=== PATIENT | male | born 1990 | race Caucasian/White ===

== ENCOUNTER 2017-08-12 17:38 | Emergency (ER) | payer SELFPAY ==
[2017-08-12 17:38] VITALS: BP 142/81; PULSE 115; RESP 24; TEMP 36.1; O2SAT 96; BMI 17.1
--- NOTE | 2017-08-12 18:15 | EKG12_ITS ---
Test Reason : CP Blood Pressure : / mmHG Vent. Rate : 116 BPM Atrial Rate : 116 BPM P-R Int : 126 ms QRS Dur : 094 ms QT Int : 322 ms P-R-T Axes : 081 088 048 degrees QTc Int : 447 ms Sinus tachycardia Biatrial enlargement Abnormal ECG Confirmed by OSCAR MANTILLA, GABRIEL ([id number]), international editorial producer TRACY VASQUEZ ([id number]) on 08/15/2017 2:52:09 PM Referred By: Confirmed By:GABRIEL MOORE MD
[2017-08-12 18:16] VITALS: O2SAT 99
--- NOTE | 2017-08-12 18:20 | RAD_ITS ---
STUDY: X-RAY CHEST REASON FOR EXAM: Male, 26 years old. Chest pain TECHNIQUE: Single frontal view COMPARISON: October 22, 2010 FINDINGS: The lungs are clear and expanded. There is no demonstrated pleural abnormality. Normal size heart. Normal mediastinum and neeru. Normal visualized pulmonary arteries. Normal visualized aortic arch and descending thoracic aorta. Normal visualized thoracic spine. Normal visualized ribs, clavicles, and shoulders. There is no demonstrated abnormality of the visualized soft tissue structures of the upper abdomen. RAD/Chest 1 View (Portable) IMPRESSION: Normal x-ray examination of the chest. Electronically Signed: Gee Mckeon DO at 18:34 EST Tel [phone], Service support ,
--- NOTE | 2017-08-12 18:28 | ED.RN ---
cousin juan miguel is leaving. will need called to take pt home. [phone]
[2017-08-12 18:36] LABS: Absolute Lymphocyte Count 1.51 X10^3/ul (0.83-4.51); Absolute Neutrophil Count 12.1 X10^3/uL (2.0-7.7); Basophil# 0.04 X10^3/uL; Basophil% 0.3 % (0-1); Eosinophil# 0.07 X10^3/uL; Eosinophils% 0.5 % (0-5); Hematocrit 48.2 % (40-54); Hemoglobin 17.1 g/dl (13.0-16.5); Lymphocyte # 1.51 X10^3/ul (4.0); Lymphocyte % 10.3 % (19-41); Mean Corp Hgb Conc 35.5 g/gl (32-36); Mean Corpuscular Hgb 32.3 pg (27.0-32.0); Mean Corpuscular Volume 90.9 fL (80-94); Monocyte# 0.99 X10^3/uL; Monocyte% 6.7 % (0-10); Neutrophil # 12.06 X10^3/uL (2.7-7.7); Neutrophil % 81.9 % (47-70); Platelet Count 224 K/mm3 (150-450); RBC Distribution Width CV 12.6 % (11.6-14.6); RBC Distribution Width SD 41.6 fl (35.1-43.9); White Blood Count 14.7 K/mm3 (4.4-11.0)
[2017-08-12 18:38] LABS: POSITIVE COUNT NO; POSITIVE DIFFERENTIAL NO; POSITIVE MORPHOLOGY NO
[2017-08-12 19:04] LABS: Anion Gap 10 (5-15); BUN 7 mg/dL (7-18); BUN/Creat Ratio 7.4 RATIO (10-20); Chloride 102 mmol/L (98-107); Creatinine, Serum 0.95 mg/dL (0.70-1.30); EST Glomerular Filtration Rate 102 mL/min (>60); Est Glom Filt Rate - Afr Amer 124 mL/min (>60); Estimated Creatinine Clearance 80.84 ml/min; Glucose 122 mg/dL (74-106); Sodium Level 136 mmol/L (136-145)
--- NOTE | 2017-08-12 19:28 | EKG12_ITS ---
Test Reason : REPEAT Blood Pressure : / mmHG Vent. Rate : 081 BPM Atrial Rate : 081 BPM P-R Int : 106 ms QRS Dur : 096 ms QT Int : 382 ms P-R-T Axes : 038 083 065 degrees QTc Int : 443 ms Sinus rhythm with short [place] Otherwise normal ECG Confirmed by OSCAR MANTILLA, GABRIEL ([id number]), primer expeditor and drier TRACY VASQUEZ ([id number]) on 08/15/2017 2:56:42 PM Referred By: BENI Confirmed By:GABRIEL MOORE MD
--- NOTE | 2017-08-12 19:35 | ED.DCSUM_ITS ---
- ER Visit Summary Date of Service: 08/12/17 Chief Complaint: Right Sided chest pain History of Present Illness: The patient is a 26 M hx of anxiety panic attacks. He partied all last night doing marijuana and cocaine. At 3 PM he developed right-sided chest pain prior to that he denies anxiety. History of cardiac disease. No history of DVT or PE. No recent travel, surgery or mobilization. No leg pain or swelling. No hemoptysis. No family history of clotting disorder. No pleuritic pain. No fever or cough. Physical Examination: Well-appearing young male. Vital signs are stable afebrile. Pulse ox 99% room air no signs of hypoxia. HEENT exam unremarkable. Neck nontender no JVD. Lungs clear to auscultation bilaterally. Heart the rhythm rate about 115 no murmur. Chest wall is nontender. No ecchymosis or bruising no subcu air or crepitance. No signs of trauma. No bony deformities. Abdomen soft nontender normal bowel sounds no peritoneal signs. He is moving all 4 extremities. Neurovascular intact. Calves no edema nor cords. Calves are nontender. Equal symmetrical radial pulses. Back exam normal. Neurologic exam normal. He does seem anxious. Test Results: CBC shows white count of 14 otherwise unremarkable. BMP normal except for potassium of 3.0. Opponent normal. EKG sinus tachycardia rate 116 with no acute signs of VT or ischemia. Chest x-ray shows normal cardiac silhouette and mediastinum. No pneumothorax. Repeat EKG was normal sinus rhythm rate 81 and a. Both the first and second EKG were unchanged and are unchanged from prior EKG from 2017. Emergency Department Course and Treatment: Patient will be treated with p.o. Ativan. A second EKG will be obtained. I do think is secondary to anxiety. I do not think it is cardiac in etiology nor do I think it is a PE. Will be reassessed if he is doing well he will be discharged home. Treatment Plan: Given p.o. Ativan on repeat exam is doing well at 1951 and he will be discharged to home. Disposition: Discharge Impression: Acute right-sided chest pain Acute anxiety attack This note was generated with [employer] dictation software. It may contain incorrect words, spelling, and punctuation that were not noted in review of the chart prior to signing ED Disposition - Plan for ED Patient: Disposition: Home or Assisted Living Chief Complaint: Chest Pain Instructions: ED Asthma Acute Ch, ED Panic Attack Referrals: Jewel Gunn MD [NON-STAFF] - As soon as possible Additional Instructions: I suspect this is all secondary to anxiety. Your labs, chest x-ray and EKG are unremarkable.
[2017-08-12 19:47] VITALS: BP 124/88; PULSE 87; RESP 13; O2SAT 98
[2017-08-12] MEDS: LORazepam 1 MG Tablet PO (19:50)
[2017-08-12 20:05] VITALS: BP 125/77; BP 128/77; BP 129/90; PULSE 75; PULSE 78; PULSE 94; RESP 16; RESP 18; RESP 21; O2SAT 95; O2SAT 99
--- NOTE | 2017-08-12 20:06 | NURSING ---
calling juan miguel to come and pick the pt up
== END 2017-08-12 20:06 | disposition home or self-care (01) ==
PROVIDERS: Emergency Provider Emergency Medicine
DX: R07.9 Chest pain, unspecified (principal); F41.9 Anxiety disorder, unspecified; R00.0 Tachycardia, unspecified; Z72.0 Tobacco use
CPT/HCPCS: 71045; 80048; 84484; 85025; 93005; 99285

== ENCOUNTER 2018-10-02 10:57 | Emergency (ER) | payer SELFPAY ==
[2018-10-02 10:59] VITALS: BP 113/77; PULSE 95; RESP 20; TEMP 36.5; O2SAT 100; BMI 17.4
--- NOTE | 2018-10-02 11:15 | ED.DCSUM_ITS ---
- ER Visit Summary Date of Service: 10/02/18 Chief Complaint: Body aches, diarrhea History of Present Illness: The patient is a 27 M who his had norovirus last weekend. Patient developed body aches, nausea, and diarrhea over the past 3 days. He has not had a measured fever. Physical Examination: Vital signs unremarkable. Patient's lying in bed. He appears ill but in no distress. Heart is regular rate and rhythm. Lung sounds are clear. Abdomen is soft with no focal tenderness. Hypoactive bowel sounds are present. Test Results: CBC was a white count 11.1 with 83% neutrophils. Hemoglobin is concentrated at 17.3. Chemistry studies are normal. Emergency Department Course and Treatment: Patient was given IV fluids, Zofran, Toradol, and 2 mg of morphine. On repeat evaluation he does feel improved. He will be given Toradol and Zofran for home. Treatment Plan: [] Disposition: Discharge Impression: Diarrhea with presumed norovirus This note was generated with [employer] dictation software. It may contain incorrect words, spelling, and punctuation that were not noted in review of the chart prior to signing ED Disposition - Plan for ED Patient: Disposition: Home or Assisted Living Instructions: ED Diarrhea Viral Prescriptions: Ondansetron [Zofran Odt] 4 mg PO Q8H PRN PRN #10 tablet PRN Reason: Nausea Ketorolac [Toradol] 10 mg PO Q6H PRN #14 tablet PRN Reason: Pain Referrals: Pau Johnson MD [STAFF PHYSICIAN] - As Needed
[2018-10-02] MEDS: Ondansetron 4 MG/2 ML Vial IV (11:56)
[2018-10-02] MEDS: 0.9% Normal Saline 1,000 ML 1000 ML IV (11:56)
[2018-10-02] MEDS: Ketorolac 30 MG/ML Syringe IV (11:57)
[2018-10-02] MEDS: Morphine 2 MG/ML Syringe IV (11:57)
[2018-10-02 12:19] LABS: Absolute Lymphocyte Count 0.95 X10^3/ul (0.83-4.51); Absolute Neutrophil Count 9.2 X10^3/uL (2.0-7.7); Basophil# 0.03 X10^3/uL; Basophil% 0.3 % (0-1); Eosinophil# 0.11 X10^3/uL; Hematocrit 49.2 % (40-54); Hemoglobin 17.3 g/dl (13.0-16.5); Lymphocyte # 0.95 X10^3/ul (4.0); Lymphocyte % 8.6 % (19-41); Mean Corp Hgb Conc 35.2 g/gl (32-36); Mean Corpuscular Hgb 32.2 pg (27.0-32.0); Mean Corpuscular Volume 91.4 fL (80-94); Mean Platelet Vol. 11.4 fl (6.2-12.0); Monocyte# 0.78 X10^3/uL; Neutrophil # 9.22 X10^3/uL (2.7-7.7); Platelet Count 179 K/mm3 (150-450); RBC Distribution Width CV 12.4 % (11.6-14.6); RBC Distribution Width SD 41.5 fl (35.1-43.9); Red Blood Count 5.38 M/mm3 (4.6-6.2); White Blood Count 11.1 K/mm3 (4.4-11.0)
[2018-10-02 12:26] LABS: POSITIVE COUNT NO; POSITIVE DIFFERENTIAL NO; POSITIVE MORPHOLOGY NO
[2018-10-02 12:27] LABS: Anion Gap 6 (5-15); BUN 9 mg/dL (7-18); Calcium,Total 9.5 mg/dL (8.5-10.1); Chloride 104 mmol/L (98-107); EST Glomerular Filtration Rate 95 mL/min (>60); Est Glom Filt Rate - Afr Amer 116 mL/min (>60); Estimated Creatinine Clearance 77.74 ml/min; Glucose 81 mg/dL (74-106); Potassium 3.8 mmol/L (3.5-5.1); Sodium Level 138 mmol/L (136-145)
[2018-10-02] MEDS: 0.9% Normal Saline 1,000 ML 150 ML IV (12:54)
[2018-10-02 13:32] VITALS: BP 100/53; PULSE 75; RESP 16; O2SAT 96
[2018-10-02 13:39] VITALS: BP 104/54; PULSE 78; RESP 16; O2SAT 98
== END 2018-10-02 13:40 | disposition home or self-care (01) ==
PROVIDERS: Emergency Provider Emergency Medicine
DX: R19.7 Diarrhea, unspecified (principal); R11.0 Nausea; Z87.891 Personal history of nicotine dependence
CPT/HCPCS: 80048; 85025; 96361; 96374; 96375; 99283; J7030; J2405

== ENCOUNTER 2019-07-14 18:06 | Emergency (ER) | payer BC, SELFPAY ==
[2019-07-14 18:07] VITALS: BP 118/59; PULSE 124; RESP 18; TEMP 36.4; O2SAT 100; BMI 16.1
--- NOTE | 2019-07-14 18:25 | ED.VISSUMM ---
- ER Visit Summary Date of Service: 07/14/19 Chief Complaint: Abdominal pain, nausea, vomiting History of Present Illness: The patient is a 28 M who presents with abdominal pain, nausea, vomiting for the past week. Patient states this has been waxing and waning. Patient states the pain is cramping a diffuse but worse over the upper abdomen. Patient denies any hematemesis or coffee-ground emesis. Patient states he has had some loose diarrhea but his most recent stools have been solid. Patient denies any dysuria or hematuria. Patient denies any radiation of the pain. Patient admits to some subjective chills. Patient also admits to some rhinorrhea. Physical Examination: Vital signs are stable except for a tachycardia of 124. Patient is afebrile. Patient is in no acute distress. Oral mucosa is pink and moist. Neck is supple. Trachea is midline. There is no JVD noted. Heart was regular and tachycardic. Lungs are clear and equal bilaterally. Abdomen is soft. Bowel sounds are normal. There is mild diffuse tenderness. There is no rebound or guarding noted. Skin is warm dry. Cranial nerves II through XII are intact. There are no focal motor or sensory deficits noted. Extremities are intact. There is no calf tenderness or edema. Test Results: CBC and comprehensive metabolic profile were within normal limits. Emergency Department Course and Treatment: Patient was given IV fluids. Patient was feeling better on reevaluation. Patient was instructed to start with a liquid diet and advance to a bland diet then to a regular diet as he starts to feel better. Patient was instructed to follow-up with his primary care physician in 5 to 7 days. Patient understood and was agreeable with the plan. All questions were answered. Disposition: Discharge home Impression: Nausea and vomiting This note was generated with [employer] dictation software. It may contain incorrect words, spelling, and punctuation that were not noted in review of the chart prior to signing ED Disposition - Plan for ED Patient: Disposition: Home or Assisted Living Diagnosis: Nausea and vomiting Instructions: VOMITING AND DIARRHEA, Nonspecific (Adult) Referrals: Care Physician,No Primary [Primary Care Provider] - 5-7 Days
[2019-07-14] MEDS: Ondansetron 4 MG/2 ML Vial IV (18:38)
[2019-07-14 18:39] LABS: Absolute Lymphocyte Count 0.78 X10^3/uL (0.83-4.51); Absolute Neutrophil Count 6.7 X10^3/uL (2.0-7.7); Basophil# 0.03 X10^3/uL; Basophil% 0.4 % (0-1); Eosinophil# 0.09 X10^3/uL; Eosinophils% 1.1 % (0-5); Hematocrit 49.6 % (40-54); Hemoglobin 16.8 g/dL (13.0-16.5); Lymphocyte # 0.78 X10^3/ul (4.0); Lymphocyte % 9.6 % (19-41); Mean Corp Hgb Conc 33.9 g/dL (32-36); Mean Corpuscular Hgb 31.2 pg (27.0-32.0); Mean Platelet Vol. 10.2 fl (6.2-12.0); Monocyte# 0.49 X10^3/uL; Monocyte% 6.1 % (0-10); NRBC Flagged by Analyzer 0 % (0-5); Neutrophil # 6.67 X10^3/uL (2.7-7.7); Neutrophil % 82.4 % (47-70); Platelet Count 220 K/mm3 (150-450); RBC Distribution Width CV 12.1 % (11.6-14.6); RBC Distribution Width SD 40.8 fl (35.1-43.9); Red Blood Count 5.39 M/mm3 (4.6-6.2); White Blood Count 8.1 K/mm3 (4.4-11.0)
[2019-07-14] MEDS: 0.9% Normal Saline 1,000 ML 1000 ML IV (18:39)
[2019-07-14 18:58] LABS: ALB/GLOB Ratio 1.1 RATIO (0.9-2.4); AST(SGOT) 13 U/L (15-37); Alanine Aminotransfer ALT/SGPT 19 U/L (16-61); Albumin, Serum 3.7 g/dL (3.2-5.0); Alkaline Phosphatase 56 U/L (45-117); Anion Gap 3 (5-15); BUN 11 mg/dL (7-18); BUN/Creat Ratio 9.4 RATIO (10-20); Calcium,Total 8.8 mg/dL (8.5-10.1); Chloride 105 mmol/L (98-107); Creatinine, Serum 1.17 mg/dL (0.70-1.30); EST Glomerular Filtration Rate 79 mL/min (>60); Est Glom Filt Rate - Afr Amer 96 mL/min (>60); Estimated Creatinine Clearance 60.84 ml/min; Globulin 3.4 g/dL (2.2-4.2); Glucose 105 mg/dL (74-106); Lipase 70 U/L (73-393); Potassium 3.6 mmol/L (3.5-5.1); Protein, Total 7.1 g/dL (6.4-8.2); Sodium Level 138 mmol/L (136-145)
[2019-07-14 20:18] VITALS: BP 95/52; PULSE 75; RESP 16; O2SAT 98
--- NOTE | 2019-07-14 20:20 | CM.ED ---
SOCIAL WORK REASON FOR REFERRAL: NO PCP MET WITH PATIENT IN ROOM. INTRODUCED ROLE AND REASON FOR REFERRAL. PATIENT STATES DOES NOT HAVE PRIMARY CARE PHYSICIAN. LIST OF LOCAL PRIMARY CARE PHYSICIANS PROVIDED. PLAN: DARSHANA BOSCH, SUSANA.
== END 2019-07-14 20:19 | disposition home or self-care (01) ==
PROVIDERS: Emergency Provider Emergency Medicine
DX: R11.2 Nausea with vomiting, unspecified (principal); E86.0 Dehydration; R10.9 Unspecified abdominal pain; R00.0 Tachycardia, unspecified
CPT/HCPCS: 80053; 83690; 85025; 96361; 96374; 99283; J7030; A4216; J2405

== ENCOUNTER 2022-09-24 19:00 | Emergency (ER) | payer SELFPAY ==
[2022-09-24 19:01] VITALS: BP 126/60; PULSE 108; RESP 18; TEMP 36.3; O2SAT 100; BMI 16.9
[2022-09-24] MEDS: 0.9% Normal Saline 1,000 ML 1000 ML IV (19:45)
[2022-09-24 19:47] LABS: Absolute Neutrophil Count 17.3 X10^3/uL (2.0-7.7); Basophil# 0.09 X10^3/uL; Basophil% 0.5 % (0-1); Eosinophil# 0.01 X10^3/uL; Eosinophils% 0.1 % (0-5); Hematocrit 52.4 % (40-54); Lymphocyte % 3.7 % (19-41); Mean Corp Hgb Conc 34.9 g/dL (32-36); Mean Corpuscular Volume 91.8 fL (80-94); Mean Platelet Vol. 11.2 fl (6.2-12.0); Monocyte# 0.73 X10^3/uL; Monocyte% 3.9 % (0-10); NRBC Flagged by Analyzer 0 % (0-5); Neutrophil % 91.5 % (47-70); Platelet Count 263 K/mm3 (150-450); RBC Distribution Width CV 12.4 % (11.6-14.6); RBC Distribution Width SD 41.2 fl (35.1-43.9); Red Blood Count 5.71 M/mm3 (4.6-6.2); White Blood Count 18.9 K/mm3 (4.4-11.0)
[2022-09-24 19:56] LABS: Hemoglobin 18.3 g/dL (13.0-16.5)
[2022-09-24 20:00] LABS: Anion Gap 6 (5-15); BUN 16 mg/dL (7-18); BUN/Creat Ratio 14.3 RATIO (10-20); Calcium,Total 9.9 mg/dL (8.5-10.1); Chloride 105 mmol/L (98-107); Creatinine, Serum 1.12 mg/dL (0.70-1.30); EST Glomerular Filtration Rate 81 mL/min (>60); Est Glom Filt Rate - Afr Amer 99 mL/min (>60); Estimated Creatinine Clearance 64.97 ml/min; Glucose 126 mg/dL (74-106); Sodium Level 133 mmol/L (136-145)
--- NOTE | 2022-09-24 21:48 | EX.ED.DYSGE1 ---
HPI History of Present Illness Chief Complaint: Nausea/Vomiting/Diarrhea Informant: patient Narrative Narrative: Patient presents with nausea vomiting diarrhea. He states yesterday felt just fine. He woke up this morning and seem to be okay. He brushed his teeth. Few minutes later he started vomiting. He still try to go to work. He then had several episodes of vomiting and watery diarrhea. No blood has been seen. No fevers or chills. He states his stomach cramps before he has to move his bowels but he is not having pain. He is not having symptoms now. He has a daughter that was recently had a fever and diarrhea but she did not vomit. This patient has not had a fever. He denies any history of abdominal surgeries. He is on medical marijuana but has not changed the dose or frequency of this and has never had vomiting issues before. [facility] Medical History Anxiety Asthma Medical marijuana use PTSD (post-traumatic stress disorder) Home Medications ondansetron 4 mg disintegrating tablet 4 mg PO Q8H PRN PRN Nausea #10 tabs 09/24/22 [Rx Last Taken Unknown] Allergy/AdvReac Type Severity Reaction Status Date / Time No Known Allergies Allergy Verified 09/24/22 19:02 Social History Smoking Status: Current every day smoker tobacco type: e-cigarettes ROS ROS ED Constitutional Constitutional ED: Denies chills, fever(s) or subjective ENT ENT ED: Denies rhinorrhea or sore throat Cardiovascular Cardiovascular: Denies chest pain or palpitations Respiratory/Chest Respiratory/Chest: Denies cough Gastrointestinal Gastrointestinal: Reports diarrhea, nausea and vomiting Genitourinary Genitourinary ED: Denies dysuria, hematuria or urinary frequency Musculoskeletal Musculoskeletal: Denies myalgias Integumentary Denies rash Neurologic Neurologic: Denies headache(s) Endocrine Endocrinology: Denies polydipsia or polyuria Hematologic/Lymphatic Hematologic/Lymphatic: Denies easy bleeding or easy bruising Allergic/Immunologic Allergic/Immunologic ED: Denies urticaria EXAM Physical Exam Narrative Exam Narrative: CONSTITUTIONAL: Patient is nontoxic in appearance. The patient looks comfortable. Despite his history, he does not look toxic HEENT: No notable trauma. Mucous membranes are slightly dry. No sinus tenderness. EYES: No conjunctival injection. No icterus CARDIOVASCULAR: Regular rate. Regular rhythm. No notable murmur. No JVD. RESPIRATORY: No respiratory distress. Breathing is unlabored. No wheezes. No rhonchi. No rales. No pain with a deep breath. GASTROINTESTINAL: Not distended. Bowel sounds are normal to slightly increased. No tenderness. No guarding. No rebound. No palpable mass. No bruit. GENITOURINARY: No tenderness over the bladder. No CVA tenderness. MUSCULOSKELETAL: Atraumatic. No peripheral edema. NEUROLOGICAL: Patient is alert and appropriate. No gross focal deficit noted. SKIN: No noted rashes. No diaphoresis. PSYCHIATRIC: Patient is calm. Mood is appropriate. Const Vital Signs: 09/24/22 19:01 Temperature 97.4 F L Temperature Source Temporal Pulse Rate 108 H Respiratory Rate 18 Blood Pressure 126/60 H Blood Pressure Mean 82 Pulse Ox 100 Oxygen Delivery Method Room Air MDM MDM MDM Narrative Medical decision making narrative: Patient CBC did show high white count and hemoglobin. This may be due to stress demargination and some dehydration. Patient is not having fevers. Electrolytes showed minimally low sodium. Range of her electrolytes overall look good. Glucose was a little bit up at 126. Patient was given IV fluids and Zofran. He states his nausea is more than 50% gone. I will give him some Phenergan. He states he has not moved his bowels at all. He is feeling better. He feels like it is starting to go away. Repeat exam really shows a benign abdomen still. Its not distended. Bowel sounds are still normal to slightly increased. There is no tenderness or mass. Even though the patient has a elevated white count, he is not having abdominal tenderness or fevers. I do not think we need to do CAT scan or imaging of his abdomen. He has exposure to a child with some similar symptoms. He is starting to feel better. We discussed reasons to return that would prompt us to look further also. All questions were answered. Patient has tolerated some fluids. He wanted to eat some crackers or something. But I stated he still has a little bit of nausea and I rather get Phenergan in first. I think he can just stay on liquids initially. Lab Data Labs: Laboratory Results - last 24 hr 09/24/22 09/24/22 19:40 19:40 WBC 18.9 H RBC 5.71 Hgb 18.3 H* Hct 52.4 MCV 91.8 MCH 32.0 MCHC 34.9 RDW Std Deviation 41.2 RDW Coeff of [place] 12.4 Plt Count 263 MPV 11.2 Immature Gran % (Auto) 0.300 Neut % (Auto) 91.5 H Lymph % (Auto) 3.7 L [place] % (Auto) 3.9 Eos % (Auto) 0.1 Baso % (Auto) 0.5 Absolute Neuts (auto) 17.3 H Absolute Lymphs (auto) 0.70 L Nucleated RBC % 0 [address] Review May foll Sodium 133 L Potassium 4.0 Chloride 105 Carbon Dioxide 22.0 Anion Gap 6 BUN 16 Creatinine 1.12 Estim Creat Clear Calc 64.97 Est GFR (MDRD) Af Amer 99 Est GFR (MDRD) Non-Af 81 BUN/Creatinine Ratio 14.3 Glucose 126 H Calcium 9.9 Discharge Plan Triage Chief Complaint: Nausea/Vomiting/Diarrhea ED Provider: Dominguez Zarate Dx/Rx/DC Orders Clinical Impression: Nausea vomiting and diarrhea, Dehydration Instructions: ED Diet Vomiting Diarrhea Prescriptions: New ondansetron [ondansetron] 4 mg tablet,disintegrating 4 mg PO Q8H PRN PRN (Reason: Nausea) Qty: 10 0RF Primary Care Provider: Care Physician,No Primary Referrals: Ryanne Rutherford DO [Med Staff - Active Staff] - 1-2 Days if not improving Care Physician,No Primary [Primary Care Provider] - Disposition Disposition: Home, Self Care
[2022-09-24] MEDS: Ondansetron 4 MG/2 ML Vial IV (22:12)
[2022-09-24] MEDS: 0.9% Normal Saline 1,000 ML 999 ML IV (22:13)
[2022-09-24 23:12] VITALS: BP 118/55; PULSE 81; RESP 18
[2022-09-26 09:56] LABS: Pathologist Review Reviewed
== END 2022-09-24 23:34 | disposition home or self-care (01) ==
PROVIDERS: Emergency Provider Emergency Medicine; Visit Provider Emergency Medicine
DX: R11.2 Nausea with vomiting, unspecified (principal); F17.290 Nicotine dependence, other tobacco product, uncomplicated; R19.7 Diarrhea, unspecified; E86.0 Dehydration; J45.909 Unspecified asthma, uncomplicated
CPT/HCPCS: 80048; 85025; 96361; 96374; 99283; J7030; A4216; J2405

== ENCOUNTER 2025-02-01 12:06 | Emergency (ER) | payer SELFPAY ==
[2025-02-01 12:07] VITALS: BP 116/72; PULSE 110; RESP 20; TEMP 36.1; O2SAT 99
--- NOTE | 2025-02-01 12:08 | RAD_ITS ---
PROCEDURE: FOOT MIN 3 VIEWS 02/01/2025 REASON FOR EXAM: INJURY Left heel pain following a fall. TECHNIQUE: FOOT MIN 3 VIEWS Laterality: Left foot COMPARISON: None FINDINGS: Bones: No visible fracture. No suspicious bone lesion. Joints: Normal alignment. Soft tissues: Soft tissue swelling. Other: RAD/Foot min 3 Views IMPRESSION: Soft tissue swelling. No fracture is seen. Reading Location: [facility]
[2025-02-01 12:46] VITALS: BMI 18.4
--- NOTE | 2025-02-01 13:12 | EDS_ITS ---
HPI History of Present Illness Chief Complaint: Lower Extremity Injury [facility] Medical History Anxiety Asthma Medical marijuana use PTSD (post-traumatic stress disorder) Home Medications ?Medication ?Instructions ?Recorded ?Last Taken ?Type fluticasone propionate 50 1 spray intranasal DAILY PRN 02/01/25 01/31/25 History mcg/actuation nasal allergy symptoms spray,suspension (24 Hour Allergy Relief) Allergy/AdvReac Type Severity Reaction Status Date / Time No Known Allergies Allergy Verified 09/24/22 19:02 Social History Smoking Status: Current every day smoker tobacco type: e-cigarettes EXAM Physical Exam Const Vital Signs: 02/01/25 12:07 Temperature 96.9 F L Temperature Source Temporal Pulse Rate 110 H Respiratory Rate 20 H Blood Pressure 116/72 Blood Pressure Mean 86 Pulse Ox 99 Oxygen Delivery Method Room Air [facility] Narrative Medical decision making narrative: HISTORY OF PRESENT ILLNESS: Chief complaint: Left heel pain 34-year-old male History of asthma, anxiety, PTSD presents with left heel pain after moving furniture last night. REVIEW OF SYSTEMS: Pertinent positives: Left heel pain Pertinent negatives: Numbness tingling PHYSICAL EXAM: Nursing triage notes reviewed, Vital signs reviewed Constitutional: please see mdm Extremities: No edema, TTP over left heel. Intact Young sign Neuro: Intact sensation L1-S1 dermatomal distributions. Intact 5/5 strength in hip flexion (T12-L3). Knee extension (L2-L4). Ankle dorsiflexion (L4-L5). Ankle plantar flexion (S1). Great toe extension (L5). 2+ patellar and Achilles DTRs. Skin: No rash or lesions noted, no sign of open fracture MEDICAL DECISION MAKING: Chief Complaint: please see HPI MDM Narrative: Patient was initially hemodynamically stable, afebrile and nontoxic-appearing. Left lower extremity was neurovascularly intact I considered the following differential diagnosis: Heel fracture, ankle fract ure, dislocation, contusion X-ray of the left foot was obtained in triage ALL IMAGES (IF OBTAINED) HAVE BEEN PERSONALLY REVIEWED AND INTERPRETED BY MYSELF. X-ray was interpreted personally by myself showed evidence obvious bony abnormality. Radiologist agreed my interpretation Patient likely suffered from bony contusion, no evidence of tendinous injury on exam. RICE instructions given The patient and/or family, caregivers express understanding. The patient and/or family, caregivers agrees with the plan. Shared decision making: I will have a discussion with the patient and or visitors regarding risk/benefits of further testing or admission. They will be made aware of of the risk/benefits inherent in this decision they will be given the opportunity to voice understanding. Total critical care time today provided was at least 0 minutes. This excludes separately billable procedures. Critical care time (if documented) is secondary to the patient having high probability of clinically significant/life threatening deterioration in the patient's condition which required my urgent intervention. Impression: 1. Acute foot pain 2. Heel contusion Dispo: Discharge home This note was generated with [employer] dictation software. It may contain incorrect words, spelling, and punctuation that were not noted in review of the chart prior to signing. Radiography Diagnostic Testing: Clinical Impression(s) from Imaging Studies Foot X-Ray 02/01/25 12:08 IMPRESSION: Soft tissue swelling. No fracture is seen. Reading Location: [id number] Discharge Plan Triage Chief Complaint: Lower Extremity Injury ED Provider: Max Cornelius Dx/Rx/DC Orders Instructions: ED Foot Contusion, ED RICE Prescriptions: No Action fluticasone propionate [24 Hour Allergy Relief] 50 mcg/actuation spray,suspension 1 spray intranasal DAILY PRN (Reason: allergy symptoms) Rx Instructions: administer into each nostril Primary Care Provider: Care Physician,No Primary Referrals: Migue Yu MD [Med Staff - Active Staff] - Activity Restrictions/Additional Instructions: Thank you for trusting us with your care today! Your Xrays are negative for bony abnormalities. Please take Tylenol (2 pills, 650 mg), ibuprofen (2 pills, 400 mg) every 6 hours as needed for pain and fever control. Please return to the emergency department if your symptoms change or worsen. Please follow with your primary care physician for further outpatient evaluation and management. Print Language: Cook Islander Disposition Disposition: Home, Self Care
--- OUTSIDE RECORDS SUMMARY | 2025-02-01 21:25 | XMS RPT_ITS | CCD ---
Author Organization [facility] Care Team Providers Care Molding Machine Operator Name Role Phone KASSY Unavailable Unavailable PHYSICIAN, NONE Unavailable Unavailable Jorge MANTILLA, Francisca Primary Care Provider [phone] Jorge MANTILLA, Francisca Primary Care Provider [phone] Dominguez Zarate Attending Unavailable Care Physician, No Primary Primary Care Unava wally Sanchez MD, Francisca Primary Care Provider [phone] Annel Higginbotham PA-C Unavailable [phone] Older GALLEY COOK.JAREN, Pily Unavailable Deanna Montgomery PA-C Unavailable Unavailable Primary Care Provider UnavailJANIS Alarcon Attending Unavailable FRANCISCA SANCHEZ Primary Care Unavailable Care Physician, No Primary Primary Care Provider Unavailable Dr. Max Cornelius DO Emergency Provider Allergies Allergy Classification Reported Allergen(s) Allergy Type Date of Onset Reaction(s) Facility (8 sources) Azithromycin; Translations: [AZITHROMYCIN] Drug Allergy 1 GI Upset [facility] (8 sources) Seasonal allergy; Translations: [SEASONAL ALLERGIES] Allergy to substance 9 Other: See Comments [facility] Medications Current Medications Medication Drug Class(es) Dates Sig (Normalized) Sig (Original) amoxicillin 875 mg oral tablet (1 source) Penicillin-class Antibacterial Start: 08-13-2022 End: 08-20-2022 take 1 tablet by mouth twice daily amoxicillin (AMOXIL) 875 mg tablet Indications: Otitis media with effusion, bilateral Take 1 tablet by mouth twice daily for 7 days. 14 tablet 0 08/13/2022 08/20/2022 Active Comment on above: Take 1 tablet by imani twice daily for 7 days. amoxicillin 875 mg / clavulanate 125 mg oral tablet (1 source) Penicillin-class Antibacterial Start: 09-29-2023 End: 10-06-2023 take 1 tablet by mouth twice daily amoxicillin-clavu lanate potassium (AUGMENTIN) 875-125 mg per tablet Indications: Bacterial sinusitis Take 1 tablet by mouth two times a day for 7 days. 14 tablet 0 09/29/2023 10/06/2023 Active fluticasone propionate 0.05 mg/actuat metered dose nasal spray (4 sources) Corticosteroid Start: 02-01-2025 take 50 ug nasal route once daily as needed Fluticasone Propionate (24 Hour Allergy Relief) 50 mcg/actuation spray,suspension Active 1 NMA INTRANASAL DAILY as needed for allergy symptoms February 01, 2025 12:00am administer into each nostril Start: 09-29-2023 take 2 spray(s) by [facility] once daily fluticasone (FLONASE) 50 mcg/actuation nasal spray Indications: Bacterial sinusitis Use 2 Sprays in each nostril once daily. Rinse mouth after use. 1 Each 09/29/2023 Active hydrOXYzine pamoate 25 mg oral capsule (5 sources) Antihistamine Start: 01-29-2025 take 1 capsule by mouth every eight hours as needed hydrOXYzine pamoate (VISTARIL) 25 mg capsule Take 1 capsule by mouth three times a day as needed. 18 capsule 01/29/2025 Active Start: 12-16-2021 End: 06-23-2024 take 1 capsule by mouth every eight hours as needed hydrOXYzine pamoate (VISTARIL) 25 mg capsule Take 1 capsule by mouth three times daily as needed. 18 capsule 12/16/2021 06/23/2024 Discontinued Comment on above: Take 1 capsule by [facility] three times daily as needed. oseltamivir 75 mg oral capsule (1 source) Neuraminidase Inhibitor Start: 10-18-19 End: 10-23-19 take 1 capsule by mouth twice daily oseltamivir (TAMIFLU) 75 mg capsule Indications: Influenza-like illness Take 1 capsule by mouth twice daily for 5 days. 10 capsule 0 10/17/2021 10/22/2021 Active Comment on above: Take 1 capsule by [facility] twice daily for 5 days. polymyxin b [id number] unt/ml / trimethoprim 1 mg/ml ophthalmic solution (2 sources) Dihydrofolate Reductase Inhibitor Antibacterial, Polymyxin-class Antibacterial Start: 06-23-19 End: 06-30-19 take 2 drop(s) into the eye(s) every six hours polymyxin B-trimethoprim (POLYTRIM) 10,000 unit- 1 mg/mL ophthalmic solution Indications: Swelling of eyelid, right Use 2 Drops in the right eye every 6 hours for 7 days. 10 mL 06/23/2024 06/30/2024 Active Start: 09-29-2023 End: 10-06-2023 take 1 drop(s) into the eye(s) four times daily trimethoprim-polymyxin (POLYTRIM) 10,000 unit- 1 mg/mL ophthalmic solution Indications: Bacterial conjunctivitis Use 1 Drop in the right eye four times daily for 7 days. 10 mL 0 09/29/2023 10/06/2023 Active predniSONE 10 mg oral tablet (3 sources) Start: 01-29-2025 End: 02-10-2025 predniSONE (DELTASONE) 10 mg tablet Take 6 tabs for 3 days, then 4 tabs for 3 days, then 2 tabs for 3 days then 1 tab for 3 days with food. 39 tablet 01/29/2025 02/10/2025 Active Start: 12-16-2021 End: 12-28-2021 predniSONE (DELTASONE) 10 mg tablet Take 6 tabs for 3 days, then 4 tabs for 3 days, then 2 tabs for 3 days then 1 tab for 3 days with food. 39 tablet 0 12/16/2021 12/28/2021 Active Start: 03-13-2021 End: 10-17-2021 predniSONE (DELTASONE) 10 mg tablet Take 4 tabs daily for 3 days, then 2 tabs daily for 3 days, then 1 tab daily for 3 days with food. 21 tablet 0 03/13/2021 10/17/2021 Discontinued Comment on above: Take 4 tabs daily fo r 3 days, then 2 tabs daily for 3 days, then 1 tab daily for 3 days with food. Take 6 tabs for 3 da ys, then 4 tabs for 3 days, then 2 tabs for 3 days then 1 tab for 3 days with food. triamcinolone acetonide 1 mg/ml topical cream (1 source) Corticosteroid Start: 01-29-2025 End: 02-05-2025 triamcinolone acetonide (KENALOG) 0.1 % cream Indications: Insect bite, unspecified site, initial encounter Apply to affected area two times a day for 7 days. 80 g 01/29/2025 02/05/2025 Active Completed/Discontinued Medications Medication Drug Class(es) Dates Sig (Normalized) Sig (Original) [id number] 200 actuat albuterol 0.09 mg/actuat metered dose inhaler (1 source) beta2-Adrenergic Agonist Start: 03-13-2021 End: 10-17-2021 take 2 puff(s) by inhalation every four hours as needed for wheezing albuterol HFA (PROVENTIL HFA, VENTOLIN HFA) 90 mcg/actuation inhaler Inhale 2 Puffs as instructed every 4 hours as needed for wheezing/shortness of breath. 8 g 0 03/13/2021 10/17/2021 Discontinued Comment on above: Inhale 2 Puffs as in structed every 4 hours as needed for wheezing/shortness of breath. naproxen 500 mg oral tablet (6 sources) Nonsteroidal Anti-inflammatory Drug Start: 06-27-2020 End: 06-23-2024 take 1 tablet by mouth every twelve hours as needed naproxen (NAPROSYN) 500 mg tablet Take 1 tablet by mouth twice daily as needed (for pain/inflammation) . Take with food. 60 tablet 06/27/2020 06/23/2024 Discontinued Comment on above: Take 1 tablet by imani twice daily as needed (for pain/inflammation). Take with food. ondansetron 4 mg disintegrating oral tablet (1 source) Serotonin-3 Receptor Antagonist Start: 09-24-2022 End: 02-01-2025 take 1 tablet by mouth every eight hours as needed for nausea Ondansetron 4 mg tablet,disintegrat ing Discontinued 4 mg PO EVERY 8 HOURS NEEDED as needed for Nausea 10 0 September 24, 2022 12:00am February 01, 2025 12:47pm Problems Problem Classification Problem Date Documented Date Episodic/Chronic Allergic reactions (1 source) Contact dermatitis; Translations: [Unspecified contact dermatitis due to other agents] Episodic E Codes: Natural/environment (2 sources) Bitten or stung by nonvenomous insect and other nonvenomous arthropods, initial encounter; Translations: [Insect bite, nonvenomous, of other, multiple, and unspecified sites, without mention of infection] Onset: 01-29-2025 01-29-2025 Episodic Fluid and electrolyte disorders (1 source) Dehydration; Translations: [Dehydration] 10-02-2022 Episodic Inflammation; infection of eye (except that caused by tuberculosis or sexually transmitteddisease) (1 source) Bacterial conjunctivitis; Translations: [Unspecified conjunctivitis] 09-29-2023 Episodic Influenza (1 source) Influenza-like illness; Translations: [Influenza due to unidentified influenza virus with other respiratory manifestations] Episodic Nausea and vomiting (3 sources) Nausea with vomiting, unspecified; Translations: [Nausea, vomiting and diarrhea] Onset: 09-28-2022 10-02-2022 Episodic Other eye disorders (1 source) Swelling of eyelid; Translations: [Edema of right eye, unspecified eyelid] 06-23-2024 Episodic Other inflammatory condition of skin (2 sources) Pruritus, unspecified; Translations: [Unspecified pruritic disorder] Onset: 01-29-2025 01-29-2025 Episodic Other upper respiratory infections (1 source) Bacterial sinusitis; Translations: [Chronic sinusitis, unspecified] 09-29-2023 Chronic Otitis media and related conditions (1 source) Otitis media; Translations: [Unspecified nonsuppurative otitis media, bilateral] Episodic Results Test Name Value Interpretation Reference Range Delaney engel ANDREWJessie 01-29-2025 CNOV Office Visit ([facility]) LUKASZ MILNER JR. ([id number]) 1990 M Date Time Provider Department 01/29/25 12:30 PM JANIS MUSA During your visit today, we recorded the following information about you: Temperature Pulse Respiration Blood pressure 97.4 degrees 100/minute 16/minute 110/68 Weight 50.6 kg Jnais Musa, MINNIE.LOCOMOTIVE ELECTRICIAN 01/29/2025 12:55 PM Signed [facility] Subjective Lukasz Milner Jr. is a 34 year old male. Patient presents with: Rash: ? bedbug bites x 1 day Rash Pertinent negatives include no fever. Bed Bug Bites: - Severe pruritus and swelling of the hands and forearms, with insect bites described as rock hard and painful to bend. 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 - Denies bites on the legs. - Recent exposure to bed bugs while visiting grandmother's house. - Similar episode last year, treated with prednisone and hydroxyzine with good relief. - Hydroxyzine noted to significantly reduce pruritus and induce drowsiness. Review of Systems Constitutional: Negative for chills and fever. Skin: Positive for rash. Constitutional: (+) insomnia Skin: (+) pruritus of hands and arms (+) hand swelling, (+) hand pain, (+) hand burning sensation, (-) pruritus of legs Objective BP 110/68 Pulse 100 Temp 36.3 ?C (97.4 ?F) Resp 16 Wt 50.6 kg (111 lb 8.8 oz) SpO2 99% BMI 18.01 kg/m? No past medical history on file. No past surgical history on file. ALLERGIES Seasonal Allergies and Z-Pack [Azithromycin] MEDICATIONS - hydrOXYzine pamoate (VISTARIL) 25 mg capsule Take 1 capsule by mouth three times a day as needed. - predniSONE (DELTASONE) 10 mg tablet Take 6 tabs for 3 days, then 4 tabs for 3 days, then 2 tabs for 3 days then 1 tab for 3 days with food. - triamcinolone acetonide (KENALOG) 0.1 % cream Apply to affected area two times a day for 7 days. - fluticasone (FLONASE) 50 mcg/actuation nasal spray Use 2 Sprays in each nostril once daily. Rinse mouth after use. (Patient not taking: Reported on 01/29/2025) No family history on file. SOCIAL HISTORY[1] Physical Exam Vitals and nursing note reviewed. Constitutional: General: He is not in acute distress. Appearance: Normal appearance. He is not ill-appearing. Skin: General: Skin is warm and dry. Findings: Erythema present. No bruising or rash. Neurological: Mental Status: He is alert. General: No acute distress. Skin: Induration and swelling of the palmar surface of the hand, erythematous papules on the hands and forearms, tenderness to palpation of the hand. { 1. Insect bite, unspecified site, initial encounter (W57.XXXA) 2. Pruritus (L29.9) - Acute bed bug bites with significant pruritus and swelling, particularly on the hands and forearms, causing pain and sleep disturbance. - Start prednisone to reduce swelling and pain. - Prescribe topical cream for application to affected areas. - Start hydroxyzine for pruritus. - Confirmed hydroxyzine is an antihistamine; patient previously experienced drowsiness with this medication. - Follow-up with your PCP in 3-5 days if symptoms have not improved or sooner if symptoms worsen - Discussed red flags and need for immediate medical evaluation if any occur. - Discussed supportive care treatment with fluids, rest and analgesia. - Discussed expected course of illness Janis Musa APRN.LOCOMOTIVE ELECTRICIAN and Recording using Your.MD software for draft documentation of the visit was discussed with the patient/authorized b2b outside sales representative; all questions welcomed and answered. Patient/authorized b2b outside sales representative agreed to proceed Disposition The patient was discharged. Procedures [1] Social History Tobacco Use - Smoking status: Former - Smokeless tobacco: Current Janis Musa APRN.LOCOMOTIVE ELECTRICIAN 01/29/2025 12:55 PM Signed 1. Insect bite, unspecified site, initial encounter (W57.XXXA) 2. Pruritus (L29.9) - Acute bed bug bites with significant pruritus and swelling, particularly on the hands and forearms, causing pain and sleep disturbance. - Start prednisone to reduce swelling and pain. - Prescribe topical cream for application to affected areas. - Start hydroxyzine for pruritus. - Confirmed hydroxyzine is an antihistamine; patient previously experienced drowsiness with this medication. - Take the prescribed prednisone pills to reduce swelling and pain from the bites; follow the dosing schedule exactly and finish the entire course. - Take the prescribed hydroxyzine for itching relief as directed; be aware it may cause drowsiness. - Apply the prescribed topical cream to each bite as instructed to help ease itching and burning. Allergies As of Date: 01/29/2025 Noted Allergy Reaction SEASONAL ALLERGIES 02/18/2019 14 - Other: See Comments Comments: Congesti (more content not included)... Normal [facility] CNOVon 06-23-2024 CNOV Office Visit ([facility] ) LUKASZ MILNER JR. ([id number]) 1990 M Date Time Provider Department 06/23/24 1:15 PM AUSTIN KRAMER [facility] During your visit today, we recorded the following information about you: Temperature Pulse Respiration Blood pressure 97.8 degrees 88/minute 16/minute 108/60 Weight 51.4 kg Austin Kramer MD 06/23/2024 1:16 PM Signed Patient presents with: Eye Problem: right eye upper eyelid redness and swelling x 3 day HPI: Rash: Location: right upper eyelid Duration: 3 days Pruritis: No Pain: Yes Change: more swollen Bleeding/ulceration/bl ister/pustule: no drainage or pustules, no eyeball irritation 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 Recent illness: No. Treatment: allergy eye drops MEDICATIONS: fluticasone (FLONASE) 50 mcg/actuation nasal spray Use 2 Sprays in each nostril once daily. Rinse mouth after use. ALLERGIES: ALLERGIES Allergen Reactions Seasonal Allergies Other: See Comments Congestion with sinus pressure Z-Pack [Azithromyci* GI Upset VITALS: BP 108/60 Pulse 88 Temp 36.6 ?C (97.8 ?F) Resp 16 Wt 51.4 kg (113 lb 5.1 oz) SpO2 98% BMI 18.29 kg/m? PHYSICAL EXAM: GEN: pleasant, no acute distress, alert HEENT: Pulls equal round and reactive to light, extraocular movements intact, sclera clear. Mild erythema and edema of the right upper eyelid near the lashes. Trace raw fine scale at the lateral canthus. No pustules in the lash line or palpebral conjunctiva. Tender medial to lateral upper eyelid. No palpable papules. ASSESSMENT/PLAN: 1. Swelling of eyelid, right - ICD9: 374.82, ICD10: H02.843 Suspect stye. Less likely contact allergy (painful without pruritus). Treat with warm compress. - POLYMYXIN B SULFATE 10,000 UNIT-TRIMETHOPRIM 1 MG/ML EYE DROPS With ophthalmology with failure to improve after this week. Follow-up sooner with signs of infection such as increasing redness, swelling, fever, or pain. Austin Kramer MD Allergies As of Date: 06/23/2024 Noted Allergy Reaction SEASONAL ALLERGIES 02/18/2019 14 - Other: See Comments Comments: Congestion with sinus pressure Z-PACK (AZITHROMYCIN) 03/29/2021 8 - GI Upset Date Reviewed: 06/23/2024 Reviewed by: Lacey Lobo MA - Fully Assessed Reason for Visit: Eye Problem [43] Cmt: right eye upper eyelid redness and swelling x 3 day Primary Visit Diagnosis:Swelling of eyelid, right [H02.843] Order(s):polymyxin B-trimethoprim (POLYTRIM) 10,000 unit- 1 mg/mL ophthalmic solutionUse 2 Drops in the right eye every 6 hours for 7 days.Disp: 10 mLRfl: 0 Prescriptions as of 06/23/2024 - polymyxin B-trimethoprim (POLYTRIM) 10,000 unit- 1 mg/mL ophthalmic solution Use 2 Drops in the right eye every 6 hours for 7 days. - fluticasone (FLONASE) 50 mcg/actuation nasal spray Use 2 Sprays in each nostril once daily. Rinse mouth after use. Problem List As Of Date: 06/23/2024 (None) Prescriptions ordered this encounter Disp Refills Start End POLYMYXIN B SULFATE 10,000 UNIT-TRIM* 10 mL 0 06/23/2024 06/30/2024 Route: RIGHT EYE Sig: Use 2 Drops in the right eye every 6 hours for 7 days. Medications Discontinued During This Encounter Prescriptions - hydrOXYzine pamoate (VISTARIL) 25 mg capsule (Discontinued) Reported on 08/13/2022 - naproxen (NAPROSYN) 500 mg tablet (Discontinued) Reported on 03/13/2021 Level of Service: OFFICE/OUTPATIENT ESTABLISHED [facility] 30 MIN [51227] Encounter Status:Closed by AUSTIN KRAMER on 06/23/24 Normal [facility] W/Diff, Automatedon 04-2 PATH REV Reviewed Normal [facility] Comment on above: Result Comment: Neut rophilic leukocytosis. Polycythemia Clinical correlation necessary. Marlon Villagran M.D. 09/26/22 AMENDED REPORT 09/26/22 0956 PATH REV previously reported as: October silva Performed By: #### L 500.2500, L100.0100 #### [facility] [address] [place], [address] Basic Metabolic Profile (BMP )on 09-24-2022 BUN/CRE 14.3 RATIO Normal 10- [facility] Comment on above: Performed By: #### L 500.2500, L100.0100 #### [facility] [address] [place], [address] CA,Total 9.9 mg/dL Normal 8.5-10.1 [facility] Comment on above: Performed By: #### L 500.2500, L100.0100 #### [facility] [address] [place], [address] Chloride [Moles/Vol] 105 mmol/L Normal 98-107 [facility] Comment on above: Performed By: #### L 500.2500, L100.0100 #### [facility] [address] [place], [address] CO2 [Moles/Vol] 22.0 mmol/L Normal 21.0-32.0 [facility] Comment on above: Performed By: #### L 500.2500, L100.0100 #### [facility] [address] [place], [address] Creatinine [Mass/Vol] 1.12 mg/dL Normal 0.70-1.30 [facility] Comment on above: Result Comment: The validity of the calculated GFR GFRAA in patients over 70 years has not been determined. Clinical correlation is essential. Performed By: #### L 500.2500, L100.0100 #### [facility] [address] [place], [address] ECRCL 64.97 ml/min Normal [facility] Comment on above: Performed By: #### L 500.2500, L100.0100 #### [facility] [address] [place], [address] EST GFR - AA 99 mL/min Normal >60 [facility] Comment on above: Result Comment: Afri can Nigerien GFR Calc Performed By: #### L 500.2500, L100.0100 #### [facility] [address] [place], [address] GAP 6 Normal 5-15 [facility] Comment on above: Performed By: #### L 500.2500, L100.0100 #### [facility] [address] [place], [address] GFR/1.73 sq M.predicted among non-blacks MDRD (S/P/Bld) [Vol rate/Area] 81 mL/min/{1.73_m2} Normal >60 [facility] Comment on above: Result Comment: Non- GFR Calc Performed By: #### L 500.2500, L100.0100 #### [facility] [address] [place], [address] Glucose [Mass/Vol] 126 mg/dL High 74-106 [facility] Comment on above: Result Comment: Fast ing Glucose result greater than or equal to 126 mg/dL suggests DIABETES MELLITUS per A.D.A. criteria. Performed By: #### L 500.2500, L100.0100 #### [facility] [address] [place], [address] Potassium [Moles/Vol] 4.0 mmol/L Normal 3.5-5.1 [facility] Comment on above: Performed By: #### L 500.2500, L100.0100 #### [facility] [address] [place], [address] Sodium [Moles/Vol] 133 mmol/L Low 136-145 [facility] Comment on above: Performed By: #### L 500.2500, L100.0100 #### [facility] [address] [place], [address] Urea nitrogen [Mass/Vol] 16 mg/dL Normal 7-18 [facility] Comment on above: Performed By: #### L 500.2500, L100.0100 #### [facility] [address] [place], [address] Emergency Department Summary on 09-24-2022 Emergency Department Summary [facility] Medical Records Department [address] [place] [address] Emergency Department Summary 09/24/22 MR#: [id number] Acct: [id number] Name: LUKASZ MILNER Jr. Rep #: [id number] : 1990 31 From: Dominguez Zarate MD PCP: Care Physician,No Primary Status:REG ER Location: ED HPI History of Present Illness Chief Complaint: Nausea/Vomiting/Diarrh ea Informant: patient Narrative Narrative: Patient presents with nausea vomiting diarrhea. He states yesterday felt just fine. He woke up this morning and seem to be okay. He brushed his teeth. Few minutes later he started vomiting. He still try to go to work. He then had several episodes of vomiting and watery diarrhea. No blood has been seen. No fevers or chills. He states his stomach cramps before he has to move his bowels but he is not having pain. He is not having symptoms now. He has a daughter that was recently had a fever and diarrhea but she did not vomit. This patient has not had a fever. He denies any history of abdominal surgeries. He is on medical marijuana but has not changed the dose or frequency of this and has never had vomiting issues before. [facility] Medical History Anxiety Asthma Medical marijuana use PTSD (post-traumatic stress disorder) Home Medications ondansetron 4 mg disintegrating tablet 4 mg PO Q8H PRN PRN Nausea #10 tabs 09/24/22 [Rx Last Taken Unknown] Allergy/AdvReac Type Severity Reaction Status Date / Time No Known Allergies Allergy Verified 09/24/22 19:02 Social History Smoking Status: Current every day smoker tobacco type: e-cigarettes ROS ROS ED Constitutional Constitutional ED: Denies chills, fever(s) or subjective ENT ENT ED: Denies rhinorrhea or sore throat Cardiovascular Cardiovascular: Denies chest pain or palpitations Respiratory/Chest Respiratory/Chest: Denies cough Gastrointestinal Gastrointestinal: Reports diarrhea, nausea and vomiting Genitourinary Genitourinary ED: Denies dysuria, hematuria or urinary frequency Musculoskeletal Musculoskeletal: Denies myalgias Integumentary Denies rash Neurologic Neurologic: Denies headache(s) Endocrine Endocrinology: Denies polydipsia or polyuria Hematologic/Lymphatic Hematologic/Lymphatic: Denies easy bleeding or easy bruising Allergic/Immunologic Allergic/Immunologic ED: Denies urticaria EXAM Physical Exam Narrative Exam Narrative: CONSTITUTIONAL: Patient is nontoxic in appearance. The patient looks comfortable. Despite his history, he does not look toxic HEENT: No notable trauma. Mucous membranes are slightly dry. No sinus tenderness. EYES: No conjunctival injection. No icterus CARDIOVASCULAR: Regular rate. Regular rhythm. No notable murmur. No JVD. RESPIRATORY: No respiratory distress. Breathing is unlabored. No wheezes. No rhonchi. No rales. No pain with a deep breath. GASTROINTESTINAL: Not distended. Bowel sounds are normal to slightly increased. No tenderness. No guarding. No rebound. No palpable mass. No bruit. GENITOURINARY: No tenderness over the bladder. No CVA tenderness. MUSCULOSKELETAL: Atraumatic. No peripheral edema. NEUROLOGICAL: Patient is alert and appropriate. No gross focal deficit noted. SKIN: No noted rashes. No diaphoresis. PSYCHIATRIC: Patient is calm. Mood is appropriate. Const Vital Signs: 09/24/22 19:01 Temperature 97.4 F L Temperature Source Temporal Pulse Rate 108 H Respiratory Rate 18 Blood Pressure 126/60 H Blood Pressure Mean 82 Pulse Ox 100 Oxygen Delivery Method Room Air MDM MDM MDM Narrative Medical decision making narrative: Patient CBC did show high white count and hemoglobin. This may be due to stress demargination and some dehydration. Patient is not having fevers. Electrolytes showed minimally low sodium. Range of her electrolytes overall look good. Glucose was a little bit up at 126. Patient was given IV fluids and Zofran. He states his nausea is more than 50% gone. I will give him some Phenergan. He states he has not moved his bowels at all. He is feeling better. He feels like it is starting to go away. Repeat exam really shows a benign abdomen still. Its not distended. Bowel sounds are still normal to slightly increased. There is no tenderness or mass. Even though the patient has a elevated white count, he is not having abdominal tenderness or fevers. I do not think we need to do CAT scan or imaging of his abdomen. He has exposure to a child with some similar symptoms. He is starting to feel better. We discussed reasons to return that would prompt us to look further also. All questions were answered. Patient has tolerated some fluids. He wanted to eat some crackers or something. But I st (more content not included)... [facility] PROGRESSon 12-28-2018 PROGRESS HNO ID: [id number] Author: Tia (Ct) FREDERICK Ortiz Service: ? Author Type: Clinical Ash Kier Boiler Type: Progress Notes Filed: 12/28/2018 1:19 PM Note Text: NAME:Lukasz Milner JrTravon DATE: December 28, 2018 [facility]#: [id number] Upper Extremity X-Ray(s): Hand, right COMPLETED TECH ID SIGN: NEY RADHA [facility] XR HAND 3V PA/LAT/OBL RTon 0 12-28-2018 XR HAND 3V PA/LAT/OBL RT * * *Final Report* * * DATE OF EXAM: Dec 28 2018 1:19PM PAUL [id number] - XR HAND 3V PA/LAT/OBL RT / PROCEDURE REASON: M79.641-Right hand pain * * * * Physician Interpretation * * * * HISTORY: Right hand pain TECHNIQUE: 3 views COMPARISON: 12/02/2018 RESULT: Expansile mostly cystic-appearing lesion in the middle phalanx of the ring finger is unchanged and is most likely an enchondroma. Slight deformity of the neck of the fifth metacarpal is thought to be an old healed fracture. No significant interval change or acute findings are noted. No acute fracture IMPRESSION: Right ring finger lesion is most likely an enchondroma. [employer]: PSC[facility] Transcribe Date/Time: Dec 28 2018 3:56P Dictated by : VIVIANE CHEEMA MD This examination was interpreted and the report reviewed and electronically signed by: VIVIANE CHEEMA MD on Dec 28 2018 4:00PM EST [id number] Normal [facility] XR CHEST 2 VIEWSon 8 XR CHEST 2 VIEWS ORIGINALXR CHEST 2 VIEWS CLINICAL STATEMENT: Chest Pain COMPARISON: None FINDINGS:Cardiac contours are normal. There is no acute infiltrate or consolidation. No pleural effusion or pneumothorax is identified. The bony structures are intact IMPRESSION:No acute process Interpreted By: Liya Quintana MDPreliminary Report By: Liya Quintana MDElectronically Signed By: Liya Quintana MD Dictated Date: 05/05/2018 4:00:34 PM Prelim Date: 05/05/2018 4:00:34 PM Sign Date: 05/05/2018 4:00:56 PM Normal [facility]ly [facility] ([place]) Vital Signs Date Time Vital Sign Value Performing Clinician Facility 02-01-2025 12:46-0400 Body mass index (BMI) [Ratio] 18.4 kg/m2 No Primary Care Physician [facility] 02-01-2025 12:46-0400 Body weight 52.16 kg No Primary Care Physician [facility] 02-01-2025 12:07-0400 Body height 167.64 cm No Primary Care Physician [facility] 02-01-2025 12:07-0400 Body temperature 96.9 [degF] No Primary Care Physician [facility] 02-01-2025 12:07-0400 Diastolic blood pressure 72 mm[Hg] No Primary Care Physician [facility] 02-01-2025 12:07-0400 Heart rate 110 /min No Primary Care Physician [facility] 02-01-2025 12:07-0400 Respiratory rate 20 /min No Primary Care Physician [facility] 02-01-2025 12:07-0400 SaO2% (BldA) [Mass fraction] 99 % No Primary Care Physician [facility] 02-01-2025 12:07-0400 Systolic blood pressure 116 mm[Hg] No Primary Care Physician [facility] 01-29-2025 12:34-0400 Body mass index (BMI) [Ratio] 18.01 kg/m2 Janis Praisler-Wood GALLEY COOK.LOCOMOTIVE ELECTRICIAN Work Phone: [facility] 01-29-2025 12:34-0400 Body temperature 97.39 [degF] Janis Praisler-Wood GALLEY COOK.LOCOMOTIVE ELECTRICIAN Work Phone: [facility] 01-29-2025 12:34-0400 Body weight 50.6 kg Janis Praisler-Wood GALLEY COOK.LOCOMOTIVE ELECTRICIAN Work Phone: [facility] 01-29-2025 12:34-0400 Diastolic blood pressure 68 mm[Hg] Janis Praisler-Wood GALLEY COOK.LOCOMOTIVE ELECTRICIAN Work Phone: [facility] 01-29-2025 12:34-0400 Heart rate 100 /min Janis Praisler-Wood GALLEY COOK.LOCOMOTIVE ELECTRICIAN Work Phone: [facility] 01-29-2025 12:34-0400 Respiratory rate 16 /min Janis Praisler-Wood GALLEY COOK.LOCOMOTIVE ELECTRICIAN Work Phone: [facility] 01-29-2025 12:34-0400 SaO2% (BldA) [Mass fraction] 99 % Janis Praisler-Wood GALLEY COOK.LOCOMOTIVE ELECTRICIAN Work Phone: [facility] 01-29-2025 12:34-0400 Systolic blood pressure 110 mm[Hg] Janis Praisler-Wood GALLEY COOK.LOCOMOTIVE ELECTRICIAN Work Phone: [facility] 06-23-2024 12:55-0500 Body mass index (BMI) [Ratio] 18.29 kg/m2 Austin Kramer MD Work Phone: [facility] 06-23-2024 12:55-0500 Body temperature 97.81 [degF] Austin Kramer MD Work Phone: [facility] 06-23-2024 12:55-0500 Body weight 51.4 kg Austin Kramer MD Work Phone: [facility] 06-23-2024 12:55-0500 Diastolic blood pressure 60 mm[Hg] Austin Kramer MD Work Phone: [facility] 06-23-2024 12:55-0500 Heart rate 88 /min Austin Kramer MD Work Phone: [facility] 06-23-2024 12:55-0500 Respiratory rate 16 /min Austin Kramer MD Work Phone: [facility] 06-23-2024 12:55-0500 SaO2% (BldA) [Mass fraction] 98 % Austin Kramer MD Work Phone: [facility] 06-23-2024 12:55-0500 Systolic blood pressure 108 mm[Hg] Austin Kramer MD Work Phone: [facility] 09-29-2023 12:16-0400 Body mass index (BMI) [Ratio] 17.36 kg/m2 Janis Praisler-Wood GALLEY COOK.LOCOMOTIVE ELECTRICIAN Work Phone: [facility] 09-29-2023 12:16-0400 Body temperature 97.7 [degF] Janis Praisler-Wood GALLEY COOK.LOCOMOTIVE ELECTRICIAN Work Phone: [facility] 09-29-2023 12:16-0400 Body weight 48.8 kg Janis Praisler-Wood GALLEY COOK.LOCOMOTIVE ELECTRICIAN Work Phone: [facility] 09-29-2023 12:16-0400 Diastolic blood pressure 68 mm[Hg] Janis Praisler-Wood GALLEY COOK.LOCOMOTIVE ELECTRICIAN Work Phone: [facility] 09-29-2023 12:16-0400 Heart rate 102 /min Janis Praisler-Wood GALLEY COOK.LOCOMOTIVE ELECTRICIAN Work Phone: [facility] 09-29-2023 12:16-0400 Respiratory rate 16 /min Janis Praisler-Wood GALLEY COOK.LOCOMOTIVE ELECTRICIAN Work Phone: [facility] 09-29-2023 12:16-0400 SaO2% (BldA) [Mass fraction] 98 % Janis Praisler-Wood GALLEY COOK.LOCOMOTIVE ELECTRICIAN Work Phone: [facility] 09-29-2023 12:16-0400 Systolic blood pressure 110 mm[Hg] Janis Praisler-Wood GALLEY COOK.LOCOMOTIVE ELECTRICIAN Work Phone: [facility] 08-13-2022 10:23-0500 Body temperature 97.81 [degF] Janis Praisler-Wood GALLEY COOK.LOCOMOTIVE ELECTRICIAN Work Phone: [facility] 08-13-2022 10:23-0500 Body weight 50.17 kg Janis Praisler-Wood GALLEY COOK.LOCOMOTIVE ELECTRICIAN Work Phone: [facility] 08-13-2022 10:23-0500 Diastolic blood pressure 62 mm[Hg] Janis Praisler-Wood GALLEY COOK.LOCOMOTIVE ELECTRICIAN Work Phone: [facility] 08-13-2022 10:23-0500 Heart rate 81 /min Janis Praisler-Wood GALLEY COOK.LOCOMOTIVE ELECTRICIAN Work Phone: [facility] 08-13-2022 10:23-0500 Respiratory rate 18 /min Janis Praisler-Wood GALLEY COOK.LOCOMOTIVE ELECTRICIAN Work Phone: [facility] 08-13-2022 10:23-0500 SaO2% (BldA) [Mass fraction] 98 % Janis Praisler-Wood GALLEY COOK.LOCOMOTIVE ELECTRICIAN Work Phone: [facility] 08-13-2022 10:23-0500 Systolic blood pressure 110 mm[Hg] Janis Praisler-Wood GALLEY COOK.LOCOMOTIVE ELECTRICIAN Work Phone: [facility] 12-16-2021 14:19-0400 Body temperature 97.81 [degF] Manisha Le GALLEY COOK.LOCOMOTIVE ELECTRICIAN Work Phone: [facility] 12-16-2021 14:19-0400 Body weight 50.35 kg Manisha Le GALLEY COOK.LOCOMOTIVE ELECTRICIAN Work Phone: [facility] 12-16-2021 14:19-0400 Diastolic blood pressure 64 mm[Hg] Manisha Le GALLEY COOK.LOCOMOTIVE ELECTRICIAN Work Phone: [facility] 12-16-2021 14:19-0400 Heart rate 82 /min Manisha Le GALLEY COOK.LOCOMOTIVE ELECTRICIAN Work Phone: [facility] 12-16-2021 14:19-0400 Respiratory rate 16 /min Manisha Le GALLEY COOK.LOCOMOTIVE ELECTRICIAN Work Phone: [facility] 12-16-2021 14:19-0400 SaO2% (BldA) [Mass fraction] 99 % Manisha Le GALLEY COOK.LOCOMOTIVE ELECTRICIAN Work Phone: [facility] 12-16-2021 14:19-0400 Systolic blood pressure 102 mm[Hg] Manisha Le GALLEY COOK.LOCOMOTIVE ELECTRICIAN Work Phone: [facility] 10-17-2021 19:17-0400 Body temperature 98.49 [degF] Raheel Sonido GALLEY COOK.LOCOMOTIVE ELECTRICIAN Work Phone: [facility] 10-17-2021 19:17-0400 Body weight 51.17 kg Raheel Sonido GALLEY COOK.LOCOMOTIVE ELECTRICIAN Work Phone: [facility] 10-17-2021 19:17-0400 Diastolic blood pressure 68 mm[Hg] Raheel Sonido GALLEY COOK.LOCOMOTIVE ELECTRICIAN Work Phone: [facility] 10-17-2021 19:17-0400 Heart rate 108 /min Raheel Sonido GALLEY COOK.LOCOMOTIVE ELECTRICIAN Work Phone: [facility] 10-17-2021 19:17-0400 Respiratory rate 18 /min Raheel Sonido GALLEY COOK.LOCOMOTIVE ELECTRICIAN Work Phone: [facility] 10-17-2021 19:17-0400 SaO2% (BldA) [Mass fraction] 98 % Raheel Sonido GALLEY COOK.LOCOMOTIVE ELECTRICIAN Work Phone: [facility] 10-17-2021 19:17-0400 Systolic blood pressure 104 mm[Hg] Raheel Sonido GALLEY COOK.LOCOMOTIVE ELECTRICIAN Work Phone: [facility] Encounters Encounter Date Encounter Type Care Provider Facility Start: 02-01-2025 End: 02-01-2025 Emergency department patient visit No Primary Care Physician -Emergency Department Work Phone: Start: 01-29-2025 End: 01-29-2025 Patient encounter procedure Janis Musa APRN.LOCOMOTIVE ELECTRICIAN Work Phone: [facility] Comment on above: Insect bite, unspeci fied site, initial encounter (Primary Dx); Pruritus Start: 01-29-2025 End: 01-30-2025 ambulatory JANIS MUSA Facility:[facility] Start: 06-23-2024 End: 06-23-2024 ambulatory FRANCISCA SANCHEZ Facility:[facility] Start: 06-23-2024 End: 06-23-2024 Office outpatient visit 25 minutes Austin Kramer MD Work Phone: [facility] Comment on above: Swelling of eyelid, right (Primary Dx) Start: 09-29-2023 End: 09-29-2023 Patient encounter procedure Janis Musa APRN.LOCOMOTIVE ELECTRICIAN Work Phone: [facility] Comment on above: Bacterial sinusitis (Primary Dx); Bacterial conjunctivitis Start: 09-24-2022 End: 09-25-2022 Emergency department patient visit [facility] Facility:[facility] Start: 08-13-2022 End: 08-13-2022 Patient encounter procedure Janis Musa APRN.LOCOMOTIVE ELECTRICIAN Work Phone: [facility] Comment on above: Otitis media with ef fusion, bilateral (Primary Dx) Start: 12-16-2021 End: 12-16-2021 Patient encounter procedure Manisha Le APRN.LOCOMOTIVE ELECTRICIAN Work Phone: [facility] Comment on above: Contact dermatitis d ue to other agent, unspecified contact dermatitis type (Primary Dx) Start: 10-18-2021 Telephone encounter Jessica Sneed APRN.LOCOMOTIVE ELECTRICIAN Work Phone: [facility] Comment on above: Results Start: 10-17-2021 End: 10-17-2021 Patient encounter procedure Raheel Head APRN.LOCOMOTIVE ELECTRICIAN Work Phone: [facility] Comment on above: Influenza-like illne ss (Primary Dx) Start: 05-05-2018 End: 05-05-2018 Emergency department patient visit KASSY COOLEY Facility:[facility] Procedures Date Procedure Procedure Detail Performing Clinician Start: 02-01-2025 X-ray of foot, three or more views No Primary Care Physician Plan of Treatment Date Care Activity Detail Author Start: 02-07-2025 Influenza vaccination Influenza Vacc ine (#1) [facility] Start: 02-08-2024 Covid-19 Vaccine () Covid-19 Vaccine () [facility] Start: 02-08-2024 Influenza vaccination C [facility] Start: 06-09-2023 Behavioral Health Screening Behavioral Health Screening [facility] Start: 02-07-2023 Covid-19 Vaccine () Covid-19 Vaccine () [facility] Start: 06-09-2022 DEPRESSION ASSESSMENT DEPRESSION ASS ESSMENT [facility] Start: 02-07-2022 Influenza vaccination C [facility] Start: 12-26-2018 HPV Vaccine (1 - 3-d ose SCDM series) HPV Vaccine (1 - 3-dose SCDM series) [facility] Start: 12-26-2010 Hepatitis B Vaccine (1 of 3 - 19+ 3-dose series) Hepatitis B Vaccine (1 of 3 - 19+ 3-dose series) [facility] Start: 12-26-2010 Urine microalbumin profile [facility] Start: 12-26-2009 Anxiety Screening Anxiety Screening [facility] Start: 12-26-2009 Depression Screening Depression Scre ening [facility] Start: 12-26-2009 HEPATITIS C SCREENING HEPATITIS C [facility] Start: 12-26-2009 Hepatitis C screening Hepatitis C [facility] Start: 12-26-2009 HIV SCREENING HIV SCREENING [facility] Start: 12-26-2009 HIV screening HIV Screening [facility] Start: 2003 Adult depression screening assessment DEPRESSION SCREENING [facility] Start: 12-26-1996 COVID-19 VACCINE (#1) COVID-19 VACCI NE (#1) [facility] Start: 06-28-1992 COVID-19 VACCINE (#1) COVID-19 VACCI NE (#1) [facility] Start: 1991 HEPATITIS B (1 of 3 - 3-dose series) HEPATITIS B (1 of 3 - 3-dose series) [facility] Influenza virus A an d B RNA and SARS-CoV-2 (COVID-19) N gene panel - Respiratory specimen by CHENCHO with probe detection COVID WITH FLUA+B, ROUTINE Microbiology Routine Influenza-like illness Ordered: 10/17/2021 [facility] Work Phone: Comment on above: Ordered: 10/17/2021 Patient Education ED Foot Contus ion ED RICE [facility] Work Phone: Payers Date Payer Category Payer Self-pay 1990 Unknown [id number] Medicaid 0 Self-pay [id number] Unknown [id number] Unknown [id number] Social History Date Type Detail Facility Start: 02-18-2019 End: 09-29-2023 Tobacco smoking status NHIS Ex-smoker [facility] Start: 02-18-2019 End: 09-29-2023 Tobacco use and exposure User of smokeless tobacco [facility] Start: 1990 Sex Assigned At Not on file C [facility] Start: 10-07-2021 End: 12-16-2021 Exposure to SARS-CoV-2 (event) Not sure [facility] History of tobacco use Current smoker [facility] Start: 05-18-2020 End: 09-29-2023 History of Social function [facility] Start: 05-18-2020 End: 09-29-2023 Tobacco use panel [facility] Start: 12-01-2018 National Score (1-100), lower number is lower risk Not on file [facility] Start: 02-01-2025 Tobacco smoking stat us MOIS Smokes tobacco daily (finding) [facility] Start: 07-14-2019 Tobacco Use Tobacco Use [facility] Start: 1990 Sex Assigned At Male W [facility] Clinical Notes 10-17-2021 to 02-01-2025 Patient InstructionsFiona-Janis Gomez, MINNIE.LOCOMOTIVE ELECTRICIAN - 01/29/2025 12:54 PM EDTMAustin Jha MD - 06/23/2024 12:58 PM Janis Perez APRN.JAREN - 09/29/2023 12:41 PM EDTPatient Instructions Note Date & Type Note Facility 02-01-2025 Radiology Diagnostic study note [facility] Imaging Services [address] [place], [place] [address] Foot min 3 Views MR#: [id number] Acct: [id number] Name: LUKASZ MILNER Jr. Rep #: [id number] : 1990 M 34 From: Benjamin Vera MD PCP: Care Physician,No Primary Status: PRE ER Study:Foot min 3 Views Date of Exam: Exam# [id number] Ordering Dr: Provider ,Ed P. PROCEDURE: FOOT MIN 3 VIEWS 02/01/2025 REASON FOR EXAM: INJURY Left heel pain following a fall. TECHNIQUE: FOOT MIN 3 VIEWS Laterality: Left foot COMPARISON: None FINDINGS: Bones: No visible fracture. No suspicious bone lesion. Joints: Normal alignment. Soft tissues: Soft tissue swelling. Other: RAD/Foot min 3 Views IMPRESSION: Soft tissue swelling. No fracture is seen. Reading Location: [id number] CC: ED PHYSICIAN PROVIDER; No Primary Care Physician ~ [employer]: Signed [facility] 01-29-2025 Instructions Janis Musa APRN.LOCOMOTIVE ELECTRICIAN - 01/29/2025 12:55 PM EDT 1. Insect bite, unspecified site, initial encounter (W57.XXXA) 2. Pruritus (L29.9) - Acute bed bug bites with significant pruritus and swelling, particularly on the hands and forearms, causing pain and sleep disturbance. - Start prednisone to reduce swelling and pain. - Prescribe topical cream for application to affected areas. - Start hydroxyzine for pruritus. - Confirmed hydroxyzine is an antihistamine; patient previously experienced drowsiness with this medication. - Take the prescribed prednisone pills to reduce swelling and pain from the bites; follow the dosing schedule exactly and finish the entire course. - Take the prescribed hydroxyzine for itching relief as directed; be aware it may cause drowsiness. - Apply the prescribed topical cream to each bite as instructed to help ease itching and burning. documented in this encounter [facility] 01-29-2025 Note HNO ID: [id number] Author: JANIS MUSA APRN.LOCOMOTIVE ELECTRICIAN Service: ? Author Type: Nurse Practitioner Type: Progress Notes Filed: 01/29/2025 12:55 Note Text: URGENT CARE ANTONELLA Milner Jr. is a 34 year old male. Patient presents with: Rash: ? bedbug bites x 1 day Rash Pertinent negatives include no fever. Bed Bug Bites: - Severe pruritus and swelling of the hands and forearms, with insect bites described as rock hard and painful to bend. - Symptoms are interfering with sleep and daily activities, including driving and work at a [employer] shop. - Denies bites on the legs. - Recent exposure to bed bugs while visiting grandmother's house. - Similar episode last year, treated with prednisone and hydroxyzine with good relief. - Hydroxyzine noted to significantly reduce pruritus and induce drowsiness. Review of Systems Constitutional: Negative for chills and fever. Skin: Positive for rash. Constitutional: (+) insomnia Skin: (+) pruritus of hands and arms (+) hand swelling, (+) hand pain, (+) hand burning sensation, (-) pruritus of legs Objective BP 110/68 Pulse 100 Temp 36.3 ?C (97.4 ?F) Resp 16 Wt 50.6 kg (111 lb 8.8 oz) SpO2 99% BMI 18.01 kg/m? No past medical history on file. No past surgical history on file. ALLERGIES Seasonal Allergies and Z-Pack [Azithromycin] MEDICATIONS - hydrOXYzine pamoate (VISTARIL) 25 mg capsule Take 1 capsule by mouth three times a day as needed. - predniSONE (DELTASONE) 10 mg tablet Take 6 tabs for 3 days, then 4 tabs for 3 days, then 2 tabs for 3 days then 1 tab for 3 days with food. - triamcinolone acetonide (KENALOG) 0.1 % cream Apply to affected area two times a day for 7 days. - fluticasone (FLONASE) 50 mcg/actuation nasal spray Use 2 Sprays in each nostril once daily. Rinse mouth after use. (Patient not taking: Reported on 01/29/2025) No family history on file. SOCIAL HISTORY[1] Physical Exam Vitals and nursing note reviewed. Constitutional: General: He is not in acute distress. Appearance: Normal appearance. He is not ill-appearing. Skin: General: Skin is warm and dry. Findings: Erythema present. No bruising or rash. Neurological: Mental Status: He is alert. General: No acute distress. Skin: Induration and swelling of the palmar surface of the hand, erythematous papules on the hands and forearms, tenderness to palpation of the hand. { 1. Insect bite, unspecified site, initial encounter (W57.XXXA) 2. Pruritus (L29.9) - Acute bed bug bites with significant pruritus and swelling, particularly on the hands and forearms, causing pain and sleep disturbance. - Start prednisone to reduce swelling and pain. - Prescribe topical cream for application to affected areas. - Start hydroxyzine for pruritus. - Confirmed hydroxyzine is an antihistamine; patient previously experienced drowsiness with this medication. - Follow-up with your PCP in 3-5 days if symptoms have not improved or sooner if symptoms worsen - Discussed red flags and need for immediate medical evaluation if any occur. - Discussed supportive care treatment with fluids, rest and analgesia. - Discussed expected course of illness Janis Musa APRN.LOCOMOTIVE ELECTRICIAN and Recording using Your.MD software for draft documentation of the visit was discussed with the patient/authorized b2b outside sales representative; all questions welcomed and answered. Patient/authorized b2b outside sales representative agreed to proceed Disposition The patient was discharged. Procedures [1] Social History Tobacco Use - Smoking status: Former - Smokeless tobacco: Current [facility] 01-29-2025 History of Presen t illness Narrative [facility] Barillas Lukasz Milner Jr. is a 34 year old male. Patient presents with: Rash: ? bedbug bites x 1 day Rash Pertinent negatives include no fever. Bed Bug Bites: - Severe pruritus and swelling of the hands and forearms, with insect bites described as rock hard and painful to bend. 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 - Denies bites on the legs. - Recent exposure to bed bugs while visiting grandmother's house. - Similar episode last year, treated with prednisone and hydroxyzine with good relief. - Hydroxyzine noted to significantly reduce pruritus and induce drowsiness. Review of Systems Constitutional: Negative for chills and fever. Skin: Positive for rash. Constitutional: (+) insomnia Skin: (+) pruritus of hands and arms (+) hand swelling, (+) hand pain, (+) hand burning sensation, (-) pruritus of legs Objective BP 110/68 Pulse 100 Temp 36.3 C (97.4 F) Resp 16 Wt 50.6 kg (111 lb 8.8 oz) SpO2 99% BMI 18.01 kg/m No past medical history on file. No past surgical history on file. ALLERGIES Seasonal Allergies and Z-Pack [Azithromycin] MEDICATIONS hydrOXYzine pamoate (VISTARIL) 25 mg capsule Take 1 capsule by mouth three times a day as needed. predniSONE (DELTASONE) 10 mg tablet Take 6 tabs for 3 days, then 4 tabs for 3 days, then 2 tabs for 3 days then 1 tab for 3 days with food. triamcinolone acetonide (KENALOG) 0.1 % cream Apply to affected area two times a day for 7 days. fluticasone (FLONASE) 50 mcg/actuation nasal spray Use 2 Sprays in each nostril once daily. Rinse mouth after use. (Patient not taking: Reported on 01/29/2025) No family history on file. SOCIAL HISTORY[1] Physical Exam Vitals and nursing note reviewed. Constitutional: General: He is not in acute distress. Appearance: Normal appearance. He is not ill-appearing. Skin: General: Skin is warm and dry. Findings: Erythema present. No bruising or rash. Neurological: Mental Status: He is alert. General: No acute distress. Skin: Induration and swelling of the palmar surface of the hand, erythematous papules on the hands and forearms, tenderness to palpation of the hand. { 1. Insect bite, unspecified site, initial encounter (W57.XXXA) 2. Pruritus (L29.9) - Acute bed bug bites with significant pruritus and swelling, particularly on the hands and forearms, causing pain and sleep disturbance. - Start prednisone to reduce swelling and pain. - Prescribe topical cream for application to affected areas. - Start hydroxyzine for pruritus. - Confirmed hydroxyzine is an antihistamine; patient previously experienced drowsiness with this medication. - Follow-up with your PCP in 3-5 days if symptoms have not improved or sooner if symptoms worsen - Discussed red flags and need for immediate medical evaluation if any occur. - Discussed supportive care treatment with fluids, rest and analgesia. - Discussed expected course of illness Janis Musa APRN.LOCOMOTIVE ELECTRICIAN and Recording using [employer] software for draft documentation of the visit was discussed with the patient/authorized b2b outside sales representative; all questions welcomed and answered. Patient/authorized b2b outside sales representative agreed to proceed Disposition The patient was discharged. 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 Recent illness: No. Treatment: allergy eye drops MEDICATIONS: fluticasone (FLONASE) 50 mcg/actuation nasal spray Use 2 Sprays in each nostril once daily. Rinse mouth after use. ALLERGIES: ALLERGIES Allergen Reactions Seasonal Allergies Other: See Comments Congestion with sinus pressure Z-Pack [Azithromyci* GI Upset VITALS: BP 108/60 Pulse 88 Temp 36.6 C (97.8 F) Resp 16 Wt 51.4 kg (113 lb 5.1 oz) SpO2 98% BMI 18.29 kg/m PHYSICAL EXAM: GEN: pleasant, no acute distress, alert HEENT: Pulls equal round and reactive to light, extraocular movements intact, sclera clear. Mild erythema and edema of the right upper eyelid near the lashes. Trace raw fine scale at the lateral canthus. No pustules in the lash line or palpebral conjunctiva. Tender medial to lateral upper eyelid. No palpable papules. ASSESSMENT/PLAN: 1. Swelling of eyelid, right - ICD9: 374.82, ICD10: H02.843 Suspect stye. Less likely contact allergy (painful without pruritus). Treat with warm compress. - POLYMYXIN B SULFATE 10,000 UNIT-TRIMETHOPRIM 1 MG/ML EYE DROPS With ophthalmology with failure to improve after this week. Follow-up sooner with signs of infection such as increasing redness, swelling, fever, or pain. Austin Kramer MD documented in this encounter [facility] 06-23-2024 Note HNO ID: [id number] Author: AUSTIN KRAMER MD Service: ? 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 Recent illness: No. Treatment: allergy eye drops MEDICATIONS: fluticasone (FLONASE) 50 mcg/actuation nasal spray Use 2 Sprays in each nostril once daily. Rinse mouth after use. ALLERGIES: ALLERGIES Allergen Reactions Seasonal Allergies Other: See Comments Congestion with sinus pressure Z-Pack [Azithromyci* GI Upset VITALS: BP 108/60 Pulse 88 Temp 36.6 ?C (97.8 ?F) Resp 16 Wt 51.4 kg (113 lb 5.1 oz) SpO2 98% BMI 18.29 kg/m? PHYSICAL EXAM: GEN: pleasant, no acute distress, alert HEENT: Pulls equal round and reactive to light, extraocular movements intact, sclera clear. Mild erythema and edema of the right upper eyelid near the lashes. Trace raw fine scale at the lateral canthus. No pustules in the lash line or palpebral conjunctiva. Tender medial to lateral upper eyelid. No palpable papules. ASSESSMENT/PLAN: 1. Swelling of eyelid, right - ICD9: 374.82, ICD10: H02.843 Suspect stye. Less likely contact allergy (painful without pruritus). Treat with warm compress. - POLYMYXIN B SULFATE 10,000 UNIT-TRIMETHOPRIM 1 MG/ML EYE DROPS With ophthalmology with failure to improve after this week. Follow-up sooner with signs of infection such as increasing redness, swelling, fever, or pain. Austin Kramer MD [facility] 09-29-2023 History of Presen t illness Narrative Subjective Eye Problem Associated symptoms include congestion and coughing. Pertinent negatives include no chills, fever, headaches, myalgias, neck pain or sore throat. Lukasz Milner Jr. is a 32 year old male who presents with right eye redness and drainage for the past 2 days. States the eye is itching. He noticed this after being at a music festival; was around a big bonfire with lots of ellen in the air. He denies foreign body sensation but does have some light sensitivity. He used some clear eye drops but seemed to get worse instead of better. He states that he has also had nasal congestion and drainage for the past week. Seems worse since the music festival. He had to sleep with his head elevated last night due to nasal congestion. States he blowing green mucous out of his nose. Review of Systems Constitutional: Negative for chills and fever. HENT: Positive for congestion and sinus pain. Negative for ear pain and sore throat. Eyes: Positive for photophobia, pain, discharge and redness. Negative for blurred vision and double vision. Respiratory: Positive for cough and sputum production. Negative for shortness of breath. Cardiovascular: Negative. Musculoskeletal: Negative for myalgias and neck pain. Neurological: Negative for dizziness and headaches. BP 110/68 Pulse 102 Temp 36.5 C (97.7 F) Resp 16 Wt 48.8 kg (107 lb 9.4 oz) SpO2 98% BMI 17.36 kg/m No past medical history on file. No past surgical history on file. ALLERGIES Seasonal Allergies and Z-Pack [Azithromycin] MEDICATIONS amoxicillin-clavulanate potassium (AUGMENTIN) 875-125 mg per tablet Take 1 tablet by mouth two times a day for 7 days. trimethoprim-polymyxin (POLYTRIM) 10,000 unit- 1 mg/mL ophthalmic solution Use 1 Drop in the right eye four times daily for 7 days. fluticasone (FLONASE) 50 mcg/actuation nasal spray Use 2 Sprays in each nostril once daily. Rinse mouth after use. hydrOXYzine pamoate (VISTARIL) 25 mg capsule Take 1 capsule by mouth three times daily as needed. (Patient not taking: Reported on 08/13/2022) naproxen (NAPROSYN) 500 mg tablet Take 1 tablet by mouth twice daily as needed (for pain/inflammation). Take with food. (Patient not taking: Reported on 03/13/2021 ) No family history on file. Social History Tobacco Use Smoking status: Former Smokeless tobacco: Current Objective Physical Exam Vitals and nursing note reviewed. Constitutional: General: He is not in acute distress. Appearance: Normal appearance. He is not ill-appearing. HENT: Right Ear: Tympanic membrane, ear canal and external ear normal. Left Ear: Tympanic membrane, ear canal and external ear normal. Nose: Nasal tenderness, mucosal edema, congestion and rhinorrhea present. Mouth/Throat: Mouth: Mucous membranes are moist. Pharynx: Oropharynx is clear. Uvula midline. No oropharyngeal exudate or posterior oropharyngeal erythema. Eyes: General: Lids are normal. Lids are everted, no foreign bodies appreciated. Vision grossly intact. Gaze aligned appropriately. No allergic shiner. Right eye: Discharge present. No foreign body or hordeolum. Extraocular Movements: Right eye: Normal extraocular motion and no nystagmus. Conjunctiva/sclera: Right eye: Right conjunctiva is injected. No chemosis, exudate or hemorrhage. Left eye: Left conjunctiva is not injected. Cardiovascular: Rate and Rhythm: Normal rate and regular rhythm. Heart sounds: Normal heart sounds. Pulmonary: Effort: Pulmonary effort is normal. No respiratory distress. Breath sounds: Normal breath sounds. No wheezing or rales. Musculoskeletal: Cervical back: Neck supple. Lymphadenopathy: Cervical: No cervical adenopathy. Skin: General: Skin is warm and dry. Findings: No erythema or rash. Neurological: Mental Status: He is alert. 1 drop of tetracaine instilled into right eye. Fluorescein stain instilled into eye and examined under black light. No corneal abrasion identified. Patient tolerated procedure well. ASSESSMENT/PLAN: 1. Bacterial sinusitis - ICD9: 473.9, 041.9, ICD10: J32.9, B96.89 (primary diagnosis) - Will begin treatment with as per antibiotic as written, see orders - The patient should also be given flonase nasal spray for the first 5-7 days of treatment. - Supportive care with plenty of fluids, rest, and analgesia prn. - AMOXICILLIN 875 MG-POTASSIUM CLAVULANATE 125 MG TABLET 2. Bacterial conjunctivitis - ICD9: 372.39, 041.9, ICD10: H10.9 - see medication orders - course and contagiousness issues discussed, including hand washing. - call if high fever, development of periorbital redness or swelling, eye pain, visual changes, concerns or if symptoms persist. - POLYMYXIN B SULFATE 10,000 UNIT-TRIMETHOPRIM 1 MG/ML EYE DROPS Janis Musa APRN.LOCOMOTIVE ELECTRICIAN documented in this encounter [facility] 09-29-2023 Instructions Janis Musa APRN.JAREN - 09/29/2023 12:40 PM EDT Images from the original note were not included. ASSESSMENT/PLAN: 1. Bacterial sinusitis - ICD9: 473.9, 041.9, ICD10: J32.9, B96.89 (primary diagnosis) - Will begin treatment with as per antibiotic as written, see orders - The patient should also be given flonase nasal spray for the first 5-7 days of treatment. - Supportive care with plenty of fluids, rest, and analgesia prn. - AMOXICILLIN 875 MG-POTASSIUM CLAVULANATE 125 MG TABLET 2. Bacterial conjunctivitis - ICD9: 372.39, 041.9, ICD10: H10.9 - see medication orders - course and contagiousness issues discussed, including hand washing. - call if high fever, development of periorbital redness or swelling, eye pain, visual changes, concerns or if symptoms persist. - POLYMYXIN B SULFATE 10,000 UNIT-TRIMETHOPRIM 1 MG/ML EYE DROPS Janis Musa APRN.CNP Adult Sinusitis Patient Education What is Sinusitis? Sinusitis [ccbv-sbg-ufca-tis] is inflammation of the sinuses or swelling of the lining of the sinus cavity or nose. During an infection the sinuses become blocked with fluid causing swelling of the lining of the sinuses. Symptoms: (viral and bacterial infections) Stuffy nose Runny nose Postnasal drip Fever Toothache Headache Tiredness Cough Sore throat Face and head pressure and or pain Common causes: 98% of sinus infections are viral caused by viruses. Risk Factors of Sinusitis Include: Allergies, air pollution, indoor humidity and outdoor temperature changes, andstructural changes in the nose may contribute to sinus pain, pressure and congestion. When to get help? Temperature greater than 100.4 F Symptoms lasting more than 10 days or worsening symptoms greater than 7-10 days. If you do not improve or worsen after a course of antibiotics, you should be re-examined. Diagnosis and Treatment: Your healthcare provider will ask a number of questions about your symptoms and how long they have occurred. If symptoms of sinusitis persist greater than 10 days, it is possible you have a bacterial sinus infection and an antibiotic is prescribed. If it is viral, antibiotics will not help. You may be instructed to take xjty-dhf-jgckimu medications for symptoms. including fever reducers acetaminophen or ibuprofen, nasal saline spray, cough and cold preparations and decongestants as prescribed by the physician, nurse practitioner or physician auction assistant. Self-Care and Prevention: Rest Fluids for hydration Good hand washing Humidifier Avoid smoking and exposure to second hand smoke Avoid sick contacts CONJUNCTIVITIS GENERAL INFORMATION: Conjunctivitis is also known as pink eye. It is an irritation of the underside of the eyelid and the white part of the eye. Conjunctivitis can be caused by infection, chemical irritation, or allergy. If infectious, it is very contagious. INSTRUCTIONS: The doctor has prescribed antibiotic drops or ointment. Use them as prescribed. Do not touch the dropper to the eye. Throw out the medication after completing treatment. If the doctor only prescribed the medication to be placed in one eye, and the other eye starts to bother you with the same symptoms, you may treat it in the same fashion. To ease discomfort, apply a warm or cool clean washcloth to your eye several times a day for 10 to 20 minutes. Gently wipe away discharge from the eyes with tissues. Wash your hands often with soap and use paper towels to dry them. Do not share towels, washcloths, or pillows. This could spread infection. Do not use eye make-up until the infection has resolved. Keep contact lenses out of eyes until the irritation is gone. Discard any eye make-up which you may have contaminated before the infection was diagnosed, and any eye make-up older than one year. Children should not return to school or daycare until the eye is no longer pink. Do not drive or operate machinery if your vision is blurred. Wear sunglasses if your eyes are sensitive to the light. CONTACT YOUR DOCTOR IF YOU OR YOUR CHILD NOTICE: *The eye is still pink 3 days after starting treatment with medicine. *Pain in the eye increases. *The redness is spreading. *Vision becomes blurred. *You have a temperature over 100.5 F (38 C). documented in this encounter [facility] 08-13-2022 History of Presen t illness Narrative Subjective Ear Pain Associated symptoms include congestion, coughing and a sore throat. Pertinent negatives include no chills or fever. Lukasz Milner Jr. is a 31 year old male who presents 6 days of nasal congestion, cough, ear pain, ears popping, and notes feeling dizzy this morning. He took two amoxicillin he had left over and home and had some improvement in his symptoms. He has not had a fever. His daughter has been sick recently with URI symptoms. Review of Systems Constitutional: Negative for chills, fever and malaise/fatigue. HENT: Positive for congestion, ear pain, sore throat and tinnitus. Respiratory: Positive for cough. Cardiovascular: Negative. Musculoskeletal: Negative. Neurological: Positive for dizziness. BP 110/62 Pulse 81 Temp 36.6 C (97.8 F) (Tympanic) Resp 18 Wt 50.2 kg (110 lb 9.6 oz) SpO2 98% BMI 17.85 kg/m No past medical history on file. No past surgical history on file. ALLERGIES Seasonal Allergies and Z-Pack [Azithromycin] MEDICATIONS amoxicillin (AMOXIL) 875 mg tablet Take 1 tablet by mouth twice daily for 7 days. hydrOXYzine pamoate (VISTARIL) 25 mg capsule Take 1 capsule by mouth three times daily as needed. (Patient not taking: Reported on 08/13/2022) naproxen (NAPROSYN) 500 mg tablet Take 1 tablet by mouth twice daily as needed (for pain/inflammation). Take with food. (Patient not taking: Reported on 03/13/2021 ) No family history on file. Social History Tobacco Use Smoking status: Former Smokeless tobacco: Current Objective Physical Exam Vitals and nursing note reviewed. HENT: Right Ear: Ear canal and external ear normal. A middle ear effusion is present. Tympanic membrane is injected. Left Ear: Ear canal and external ear normal. A middle ear effusion is present. Tympanic membrane is injected. Nose: Nose normal. Mouth/Throat: Pharynx: Uvula midline. No oropharyngeal exudate or posterior oropharyngeal erythema. Cardiovascular: Rate and Rhythm: Normal rate and regular rhythm. Heart sounds: Normal heart sounds. Pulmonary: Effort: Pulmonary effort is normal. No respiratory distress. Breath sounds: Normal breath sounds. No wheezing or rales. Musculoskeletal: Cervical back: Neck supple. Lymphadenopathy: Cervical: No cervical adenopathy. Skin: General: Skin is warm and dry. Findings: No erythema or rash. Neurological: Mental Status: He is alert. ASSESSMENT/PLAN: 1. Otitis media with effusion, bilateral - ICD9: 381.4, ICD10: H65.93 - Will begin treatment with as per antibiotic as written, see orders - Supportive care with plenty of fluids, rest, and analgesia prn. - AMOXICILLIN 875 MG TABLET - Follow-up with your PCP in 3-5 days if symptoms have not improved or sooner if symptoms worsen - Discussed red flags and need for immediate medical evaluation if any occur. - Discussed supportive care treatment with fluids, rest and analgesia. - Discussed expected course of illness Janis Musa APRN.JAREN documented in this encounter [facility] 08-13-2022 Instructions Janis Musa APRN.JAREN - 08/13/2022 10:41 AM EST ASSESSMENT/PLAN: 1. Otitis media with effusion, bilateral - ICD9: 381.4, ICD10: H65.93 - Will begin treatment with as per antibiotic as written, see orders - Supportive care with plenty of fluids, rest, and analgesia prn. - AMOXICILLIN 875 MG TABLET - Follow-up with your PCP in 3-5 days if symptoms have not improved or sooner if symptoms worsen - Discussed red flags and need for immediate medical evaluation if any occur. - Discussed supportive care treatment with fluids, rest and analgesia. - Discussed expected course of illness Janis Musa APRN.JAREN OTITIS MEDIA GENERAL INFORMATION: Otitis media is an infection of the middle ear. The middle ear sits behind the eardrum. This infection may be caused by a virus or bacteria and often follows a cold. Children often have repeat ear infections. Otitis media is not contagious. INSTRUCTIONS: 1. An antibiotic has been prescribed. It should be taken exactly as prescribed. Do not stop the medicine even if the symptoms go away. 2. Xtwd-rpz-yjzosgn pain medication may be taken or other pain medication as prescribed by the doctor. 3. Nothing should be placed in the ear unless instructed by your doctor. 4. The patient may return to school/daycare or work when the temperature is normal (98.6 F or 37 C). 5. The patient should not swim while the ear is infected. CONTACT YOUR DOCTOR IF YOU OR YOUR CHILD: 1. Does not feel better within 36 hours. 2. Develops a temperature over 102E F (39E C). 3. Starts vomiting or has diarrhea. 4. Develops drainage from the affected ear. 5. Has any new problem that may be related to the medicine prescribed. RETURN TO THE ED IF: 1. You or your child has a severe headache or pain around the ear. 2. You or your child notice swelling around the ear. 3. You or your child has a seizure (convulsion), twitching of the facial muscles, or passes out. 4. You or your child is dizzy, has a stiff neck, or cannot walk or talk normally. 5. Your child becomes more irritable or listless (not interested in his or her surroundings, does not get soothed by you holding him or her). documented in this encounter [facility] 12-16-2021 Instructions Manisha Le APRN.JAREN - 12/16/2021 2:30 PM EDT Patient instructed to: * Use cold compresses, 20 minutes 4-6 times per day * Use [employer] Solution and Aveeno products as needed. * Wash all clothes. * Return to primary care provider if no relief in 3-4 days. documented in this encounter [facility] 12-16-2021 History of Presen t illness Narrative This note was created using [employer]. Subjective Lukasz Milner Jr. is a 30 year old male. 30 year old male with no PMH presents for rash. Acute onset middle of night States he was staying somehwere he has never stayed before. +itchy super Located on back. States that where he stayed has 3 cats and believes that he was bitten by fleas Denies URI sx Denies fever or chills The history is provided by the patient. No language and literature division chair was used. Rash This is a new problem. The current episode started yesterday. The problem is unchanged. Location: back The rash is characterized by redness and itchiness. Associated with: stayed over a new place with cats. Pertinent negatives include no anorexia, congestion, cough, diarrhea, eye pain, facial edema, fatigue, fever, joint pain, nail changes, rhinorrhea, shortness of breath, sore throat or vomiting. Past treatments include anti-itch cream. The treatment provided no relief. There is no history of allergies, asthma, eczema or varicella. No past medical history on file. No past surgical history on file. ALLERGIES Seasonal Allergies and Z-Pack [Azithromycin] MEDICATIONS predniSONE (DELTASONE) 10 mg tablet Take 6 tabs for 3 days, then 4 tabs for 3 days, then 2 tabs for 3 days then 1 tab for 3 days with food. hydrOXYzine pamoate (VISTARIL) 25 mg capsule Take 1 capsule by mouth three times daily as needed. naproxen (NAPROSYN) 500 mg tablet Take 1 tablet by mouth twice daily as needed (for pain/inflammation). Take with food. No family history on file. Social History Tobacco Use Smoking status: Former Smoker Smokeless tobacco: Current User Substance Use Topics Alcohol use: Not on file Drug use: Not on file Review of Systems Constitutional: Negative for activity change, appetite change, chills, fatigue and fever. HENT: Negative for congestion, rhinorrhea and sore throat. Eyes: Negative for pain. Respiratory: Negative for cough and shortness of breath. Gastrointestinal: Negative for abdominal pain, anorexia, constipation, diarrhea, nausea and vomiting. Musculoskeletal: Negative for arthralgias, back pain, gait problem and joint pain. Skin: Positive for rash. Negative for nail changes. Allergic/Immunologic: Negative for environmental allergies, food allergies and immunocompromised state. Neurological: Negative for dizziness, facial asymmetry and headaches. Hematological: Negative for adenopathy. Does not bruise/bleed easily. Psychiatric/Behavioral: Negative for agitation and behavioral problems. Objective BP 102/64 Pulse 82 Temp 36.6 C (97.8 F) Resp 16 Wt 50.3 kg (111 lb) SpO2 99% BMI 17.92 kg/m Physical Exam Vitals and nursing note reviewed. Constitutional: General: He is not in acute distress. Appearance: Normal appearance. He is not ill-appearing, toxic-appearing or diaphoretic. HENT: Head: Normocephalic and atraumatic. Right Ear: External ear normal. Left Ear: External ear normal. Nose: Nose normal. No congestion or rhinorrhea. Mouth/Throat: Mouth: Mucous membranes are moist. Pharynx: Oropharynx is clear. No oropharyngeal exudate or posterior oropharyngeal erythema. Eyes: General: Right eye: No discharge. Left eye: No discharge. Extraocular Movements: Extraocular movements intact. Conjunctiva/sclera: Conjunctivae normal. Pupils: Pupils are equal, round, and reactive to light. Cardiovascular: Rate and Rhythm: Normal rate and regular rhythm. Pulses: Normal pulses. Heart sounds: Normal heart sounds. No murmur heard. No friction rub. No gallop. Pulmonary: Effort: Pulmonary effort is normal. No respiratory distress. Breath sounds: Normal breath sounds. No stridor. No wheezing, rhonchi or rales. Chest: Chest wall: No tenderness. Abdominal: General: Abdomen is flat. There is no distension. Palpations: Abdomen is soft. There is no mass. Tenderness: There is no abdominal tenderness. There is no guarding or rebound. Hernia: No hernia is present. Musculoskeletal: General: No swelling, tenderness, deformity or signs of injury. Normal range of motion. Cervical back: Normal range of motion and neck supple. No rigidity or tenderness. Right lower leg: No edema. Left lower leg: No edema. Lymphadenopathy: Cervical: No cervical adenopathy. Skin: General: Skin is warm and dry. Capillary Refill: Capillary refill takes less than 2 seconds. Coloration: Skin is not jaundiced or pale. Findings: No bruising, lesion or rash. Comments: Posterior back with multiple pruritic raised macupapular No abscess. No streaking. No crepitus. +neuro +sensation No petechia Neurological: General: No focal deficit present. Mental Status: He is alert and oriented to person, place, and time. Cranial Nerves: No cranial nerve deficit. Sensory: No sensory deficit. Motor: No weakness. Coordination: Coordination normal. Gait: Gait normal. Deep Tendon Reflexes: Reflexes normal. Psychiatric: Mood and Affect: Mood normal. Behavior: Behavior normal. Thought Content: Thought content normal. Assessment and Plan ASSESSMENT/PLAN: 1. Contact dermatitis due to other agent, unspecified contact dermatitis type - ICD9: 692.89, ICD10: L25.8 Endorses that he was staying at a new place last night Cat with fleas His rash is consistent with flea bites Hemodynamically stable Well appearing Will start patient on Prednisone taper and RX Vistaril Follow up with PCP Manisha Le APRN.LOCOMOTIVE ELECTRICIAN documented in this encounter [facility] 10-18-2021 Miscellaneous Notes Patient notified of results, verbalizes understanding of instructions. Elise Washington LPN Positive for flu A, negative for covid and flu b. Please notify thank you documented in this encounter [facility] 10-17-2021 History of Presen t illness Narrative Subjective HPI HPI Lukasz Milner Jr. is a 30 year old male who presents today for CC of fever, body aches, dizzy with fever. This started 2 days ago. Has tried otc medication for relief. Symptoms are worsened by nothing. Risk factors sick exposures at home, possibly flu. Denies cp/sob, n/v/d, ear pain, st. .Patient presents with: Fever: fever, bodyaches, stuffy nose and dizzy x 2 days History reviewed. No pertinent past medical history. No past surgical history on file. ALLERGIES Seasonal Allergies and Z-Pack [Azithromycin] MEDICATIONS albuterol HFA (PROVENTIL HFA, VENTOLIN HFA) 90 mcg/actuation inhaler Inhale 2 Puffs as instructed every 4 hours as needed for wheezing/shortness of breath. predniSONE (DELTASONE) 10 mg tablet Take 4 tabs daily for 3 days, then 2 tabs daily for 3 days, then 1 tab daily for 3 days with food. naproxen (NAPROSYN) 500 mg tablet Take 1 tablet by mouth twice daily as needed (for pain/inflammation). Take with food. No family history on file. Social History Tobacco Use Smoking status: Former Smoker Smokeless tobacco: Current User Substance Use Topics Alcohol use: Not on file Drug use: Not on file ROS Objective Blood pressure 104/68, pulse 108, temperature 36.9 C (98.5 F), temperature source Tympanic, resp. rate 18, weight 51.2 kg (112 lb 12.8 oz), SpO2 98 %. Physical Exam Constitutional: General: He is not in acute distress. Appearance: He is ill-appearing (mildly). He is not toxic-appearing or diaphoretic. HENT: Head: Normocephalic and atraumatic. Right Ear: Hearing, tympanic membrane, ear canal and external ear normal. Left Ear: Hearing, tympanic membrane, ear canal and external ear normal. Nose: Nose normal. Mouth/Throat: Pharynx: Uvula midline. No pharyngeal swelling, oropharyngeal exudate, posterior oropharyngeal erythema or uvula swelling. Eyes: General: Lids are normal. No scleral icterus. Right eye: No discharge. Left eye: No discharge. Conjunctiva/sclera: Conjunctivae normal. Pupils: Pupils are equal, round, and reactive to light. Neck: Trachea: Trachea normal. Cardiovascular: Rate and Rhythm: Normal rate and regular rhythm. Heart sounds: Normal heart sounds. Pulmonary: Effort: Pulmonary effort is normal. Breath sounds: Normal breath sounds. Musculoskeletal: Cervical back: Normal range of motion and neck supple. Lymphadenopathy: Cervical: No cervical adenopathy. Right cervical: No superficial cervical adenopathy. Left cervical: No superficial cervical adenopathy. Skin: Findings: No rash. Neurological: Mental Status: He is alert and oriented to person, place, and time. ASSESSMENT/PLAN: 1. Influenza-like illness - ICD9: 487.1, ICD10: J11.1 -under 2 days of s/s, discussed pros/cons of treatment, requests treatment. -discussed expected course -discussed supportive care -discussed red flags and reasons for f/u -discussed contagiousness, reason/when close family members should f/u, and whom to avoid -f/u in 3-5 days if symptoms worsening - OSELTAMIVIR 75 MG CAPSULE - COVID WITH FLUA+B, ROUTINE Agrees to plan Declines avs Raheel Head APRN.JAREN documented in this encounter [facility] Evaluation note Diagnosis Influenza-like illness- Primary Influenza with other respiratory manifestations [facility] Diagnosis Contact dermatitis due to other agent, unspecified contact dermatitis type- Primary [facility] Diagnosis Otitis media with effusion, bilateral- Primary [facility] Diagnosis Bacterial sinusitis- Primary Unspecified sinusitis (chronic) Bacterial conjunctivitis Other conjunctivitis [facility] Diagnosis Swelling of eyelid, right- Primary [facility] Diagnosis Insect bite, unspecified site, initial encounter- Primary Pruritus Unspecified pruritic disorder [facility] noteNo assessment information availableWOhio State Harding [facility] Work Phone: Hospital Discharge instructionsAdditional Instructions Thank you for trusting us with your care today! Your Xrays are negative for bony abnormalities. Please take Tylenol (2 pills, 650 mg), ibuprofen (2 pills, 400 mg) every 6 hours as needed for pain and fever control. Please return to the emergency department if your symptoms change or worsen. Please follow with your primary care physician for further outpatient evaluation and management.[facility] Work Phone: Reason for referral (narrative)No reason for referral information availableWOhio State Harding Hospital Work Phone: Summary Purpose Family History No Family History Records FoundNo Family History Records FoundNo Family History Records FoundNo Family History Records Found Advance Directives Advance Directive Response Recorded Date/ Time Do you have a Healthcare Power of Flanging Machine Operator? No February 01, 2025 12:49pm Chief Complaint and Reason for Visit Chief Complaint Admit Date lower ext February 01, 2025 12 :06pm Additional Source Comments (unrecognized sect ion and content) No Status Records FoundNo Status Records FoundNo Status Records FoundNo Status Records Found INFORMATION SOURCE (unrecogn ized section and content) DATE CREATED AUTHOR 05/18/2018 [facility] ([place]) DATE CREATED AUTHOR AUTHOR'S ORGANIZ ATION 12/28/2018 [facility] DATE CREATED AUTHOR AUTHOR'S ORGANIZ ATION 09/29/2022 [facility] DATE CREATED AUTHOR AUTHOR'S ORGANIZ ATION 01/31/2025 [facility] Source Comments (unrecognize d section and content) In the event this informatio n is protected by the Federal Confidentiality of Alcohol and Drug Abuse Patient Records regulations: The Federal rules restrict any use of the information to criminally investigate or prosecute any alcohol or drug abuse patient.[facility] the event this information is protected by the Federal Confidentiality of Alcohol and Drug Abuse Patient Records regulations: The Federal rules restrict any use of the information to criminally investigate or prosecute any alcohol or drug abuse patient.[facility] the event this information is protected by the Federal Confidentiality of Alcohol and Drug Abuse Patient Records regulations: The Federal rules restrict any use of the information to criminally investigate or prosecute any alcohol or drug abuse patient.[facility] Hospital[facility] the event this information is protected by the Federal Confidentiality of Alcohol and Drug Abuse Patient Records regulations: The Federal rules restrict any use of the information to criminally investigate or prosecute any alcohol or drug abuse patient.[facility] the event this information is protected by the Federal Confidentiality of Alcohol and Drug Abuse Patient Records regulations: The Federal rules restrict any use of the information to criminally investigate or prosecute any alcohol or drug abuse patient.[facility] the event this information is protected by the Federal Confidentiality of Alcohol and Drug Abuse Patient Records regulations: The Federal rules restrict any use of the information to criminally investigate or prosecute any alcohol or drug abuse patient.[facility] Hospital[facility] the event this information is protected by the Federal Confidentiality of Alcohol and Drug Abuse Patient Records regulations: The Federal rules restrict any use of the information to criminally investigate or prosecute any alcohol or drug abuse patient.[facility] Reason for Visit (unrecogniz ed section and content) Reason Comments Fever fever, bodyaches, st uffy nose and dizzy x 2 days Specialty Diagnoses / Procedures Referred By Contac t Referred To Contact Internal Medicine / [facility] Diagnoses feverish, eye pressure, body aches, stuffed up nose, dizzy Procedures URGENT CARE [facility] [address] [place] [address] Referral ID Status Reason Start Date Expiration Date Visits Requested Visits Authorized [id number] Pending Review Financial Clearance Required - Self Pay 10/17/2021 01/15/2022 1 1 Reason Comments Rash itching x last night , on back Specialty Diagnoses / Procedures Referred By Contac t Referred To Contact Internal Medicine / [facility] Diagnoses Rash on back Procedures EST SAME DAY [facility] [address] [place] [address] Referral ID Status Reason Start Date Expiration Date Visits Requested Visits Authorized [id number] Pending Review Financial Clearance Required - Self Pay 12/16/2021 03/16/2022 1 1 Reason Comments Results Reason Comments Ear Pain Pt reported cough, x 6 days. Reason Comments Eye Problem watery, swollen, joe nful and itching x 2 days Specialty Diagnoses / Procedures Referred By Contac t Referred To Contact [facility] Medicine / [facility] Diagnoses possible eye infection: watering, swollen, pain, itching x 2 days Procedures EST SAME DAY [facility] [address] [place] [address] Referral ID Status Reason Start Date Expiration Date Visits Requested Visits Authorized [id number] Authorized Patient Cleared - Qualified 100% FAS 09/29/2023 12/28/2023 99 99 Reason Comments Eye Problem right eye upper eyel id redness and swelling x 3 day Reason Comments Rash ? bedbug bites x 1 d ay Care Teams (unrecognized sec tion and content) Molding Machine Operator Relationship Specialty Start Date End Date Francisca Sanchez MD [address] [place] [address] PCP - General Internal Medicine 06/14/19 Molding Machine Operator Relationship Specialty Start Date End Date Francisca Sanchez MD [address] [place] [address] PCP - General Internal Medicine 06/14/19 Molding Machine Operator Relationship Specialty Start Date End Date Francisca Sanchez MD [address] [place], [place] [id number] PCP - General Internal Medicine 06/14/19 Molding Machine Operator Relationship Specialty Start Date End Date Francisca Sanchez MD [address] [place] [address] PCP - General Internal Medicine 06/14/19 Molding Machine Operator Relationship Specialty Start Date End Date Francisca Sanchez MD [address] [place] [address] PCP - General Internal Medicine 06/14/19 Annel Higginbotham, PABobC [address] [place] [address] [employer] Family Medicine 05/16/24 Pily Riddle APRN.LOCOMOTIVE ELECTRICIAN [address] [place] [address] [employer] Internal Medicine 05/16/24 Deanna Montgomery PA-C [address] [place] [address] [employer] Family Medicine 05/16/24 Team Status: Active Member Role/Relationship Status Dates No Primary Care Physician Primary Care Provider Active Team Status: Inactive Member Role/Relationship Status Dates No Primary Care Physician Primary Care Provider Active Start: February 01, 2025 End: February 01, 2025 Dr. Max Cornelius , DO Emergency Provider Active Start: February 01, 2025 End: February 01, 2025 Goals (unrecognized section and content) Goals may be documented in a n alternate section FOR RECORDS PERTAINING TO PATIENTS WHO ARE OR HAVE BEEN ENROLLED IN A CHEMICAL DEPENDENCY/SUBSTANCEABUSE PROGRAM, SOME INFORMATION MAY BE OMITTED. This clinical summary was aggregated from multiple sources. Caution should be exercised in using it in the provision of clinical care. This summary normalizes information from multiple sources, and as a consequence, information in this document may materially change the coding, format and clinical context of patient data. In addition, data may be omitted in some cases. CLINICAL DECISIONS SHOULD BE BASED ON THE PRIMARY CLINICAL RECORDS. [employer] provides no warranty or guarantee of the accuracy or completeness of information in this document.
== END 2025-02-01 14:09 | disposition home or self-care (01) ==
PROVIDERS: Emergency Provider Emergency Medicine; Visit Provider Emergency Medicine
DX: S90.32XA Contusion of left foot, initial encounter (principal); Z79.51 Long term (current) use of inhaled steroids; F17.290 Nicotine dependence, other tobacco product, uncomplicated; X50.9XXA Other and unspecified overexertion or strenuous movements or postures, initial encounter; Y93.89 Activity, other specified; J45.909 Unspecified asthma, uncomplicated; M79.672 Pain in left foot
CPT/HCPCS: 73630; 99282